=== PATIENT | female | born 1965 | race Caucasian/White ===

== ENCOUNTER 2023-10-07 21:54 | Observation (INO) | payer OTHER, SELFPAY ==
[2023-10-07 16:25] VITALS: BP 160/98
[2023-10-07 16:49] LABS: % Basophils 0.8 % (0-2); % Eosinophils 1.3 % (0-6); % Immature Granulocytes 0.3 % (0-0.5); % Lymphocytes 21.2 % (20.5-51.1); % Monocytes 6.3 % (1.7-9.3); % Neutrophils 70.1 % (42.2-75.2); Absolute Basophils 0.1 10^3/uL (0-0.2); Absolute Eosinophils 0.1 10^3/uL (0-0.7); Absolute Lymphocytes 1.7 10^3/uL (1.2-3.4); Absolute Monocytes 0.5 10^3/uL (0.1-0.6); Absolute Neutrophils 5.6 10^3/uL (1.4-6.5); Hematocrit 39.6 % (37.0-47.0); Hemoglobin 13.6 g/dL (12.0-16.0); Mean Corp Hgb Conc. 34.3 g/dL (33.0-37.0); Mean Corpuscular Hgb 30.6 pg (27.0-31.0); Mean Platelet Volume 9.8 fL (7.4-10.4); Nucleated Red Blood Cells % 0 %; Platelet Count 223 10^3/uL (130-400); Red Blood Cell Count 4.45 10^6/uL (4.20-5.40); Red Cell Dist. Width 11.7 % (11.5-14.5)
[2023-10-07 17:02] LABS: ALT (SGPT) 12 U/L (0-35); AST (SGOT) 23 U/L (14-36); Albumin 4.2 g/dl (3.5-5.0); Alkaline Phosphatase 80 U/L (38-126); Blood Urea Nitrogen 17 mg/dl (7-17); Calcium 9.2 mg/dl (8.4-10.2); Carbon Dioxide 29 mmol/L (22-30); Chloride 103 mmol/L (98-107); Glucose 99 mg/dl (70-99); Sodium 135 mmol/L (135-145); Total Bilirubin 0.8 mg/dl (0.2-1.3); Total Protein 6.8 g/dl (6.3-8.2); eGFR > 60.00
[2023-10-07 17:15] LABS: Troponin I < 0.012 ng/ml
--- NOTE | 2023-10-07 19:26 | ED.GENMED ---
History of Present Illness
General
Chief Complaint: Chest Pain
Source: patient and spouse
Exam Limitations: none
Time Seen by Provider: 10/07/23 19:21
Nursing documentation reviewed up to this point in time: agreed with
Travel History
Have you had any contact with someone who has COVID-19?: No
Do you have any symptoms of coronavirus? Fever > 100 degrees, chills, cough, shortness of breath, sore throat, loss of taste or smell, muscle aches, or headache?: No
History of Present Illness
History of Present Illness:
57-year-old female presents the emergency department complaining of chest pressure for the past 2 to 3 weeks. No worsening with exertion. She saw her primary care physician was diagnosed with a new murmur, and sent to the emergency department for
further evaluation. She is still experiencing chest pressure.
Past History
Past History
ED Past Medical History: Other (Crohn's disease)
ED Past Surgical History: Bowel resection
Social History
Tobacco: Non-smoker
Alcohol: Occasional
Drug: None
Personal:
Living: with family
Employment: Employed
Review of Systems
Review of Systems
Allergies reviewed?: Yes
All Other Systems: Not applicable
Constitutional: Reports no symptoms
EENT: Reports no symptoms
Respiratory: Reports no symptoms
Cardiac: Reports chest pain
ABD/GI: Reports no symptoms
: Reports no symptoms
Musculoskeletal: Reports no symptoms
Skin: Reports no symptoms
Neurological: Reports no symptoms
Endocrine: Reports no symptoms
Hematologic/Lymphatic: Reports no symptoms
Psychiatric: Reports no symptoms
Phy Exam
Physical Exam
Physical Exam:
Physical Exam
General: no apparent distress, not acutely ill
Neck: supple. no meningeal signs. normal posterior pharynx
Heart: s1/s2 regular rate and rhythm, diastolic murmur iv/vi. equal radial
pulses.
HEENT: Pupils equal round reactive to light, EOMI
Lungs: no acute respiratory distress. clear bilaterally
Abdomen: normal bowel sounds. not tender. no CVAT
Neuro: alert and oriented. no focal neurological deficits cranial nerves II through XII intact
Skin: no rash
Psychiatric: well kept. interactive and cooperative
Extremities: no edema. no calf tenderness. negative homans. good distal pulses
Scores
Heart Score for Chest Pain Patients
STEMI patient?: No
History: Slightly or Non-Suspicious
ECG: Normal
Age: >45 - <65 years
Risk Factors: No Risk Factors
Troponin: </= Normal Limit
Heart Score for Chest Pain Patients: 1
Heart Score Risk: 2.5% MACE over next 6 weeks
Course
Orders/Labs/Results
Orders:
Orders
10/07/23 Dinner
Cholesterol Lowering
Cholesterol Lowering: Sodium, 2 Gram
10/07/23 16:28
Electrocardiogram (*1) Urgent
Reason for Study: Chest Pain
EKG- Treatment ONCE
10/07/23 16:38
Complete Blood Count/With Diff Urgent
Comprehensive Metabolic Panel Urgent
NT-proBNP Urgent
Comment: ADD ON
Troponin I Urgent
10/07/23 19:46
CR Chest - 2 Views Urgent
Comment:
Reason For Exam: chest pressure
10/07/23 19:52
Add On- LAB Urgent
Tests Added?: pro bnp
10/07/23 20:21
Troponin I Urgent
10/07/23 21:38
Admit/Transfer Patient As Directed
Co-Sign Provider:
Level of Care: Observation services
Assign to:: Telemetry
Physician / Group: abigail longo
Diagnosis: cp with new cardiac murmur
Reason for Telemetry: Arrhythmia
Date to Stop Telemetry: 10/10/23
Time to Stop Telemetry: 11:00
Reason for Hospitalization: cp with new cardiac murmur
Code Status As Directed
Resuscitation Status: Full Code
10/07/23 22:42
Troponin I Q6H
10/07/23 22:42
Activity As Directed
Activity Level: As Tolerated
Pneumatic Compression Sleeves As Directed
Type: Knee high
Vital Signs As Directed
Frequency: Per unit guidelines
Pt Eval And Treat Routine
Activity Level: As Tolerated
DX Deep Vein Thrombosis Video Routine
10/08/23 04:42
Troponin I Q6H
10/08/23 06:00
Echo 2D MMode Color/Doppler IN AM
Reason for Study: sob
Comment: new cardiac murmur
Cardiovascular Evaluation IN AM
10/10/23 11:00
DC Protocol for Telemetry ONCE
10/07/23 16:38
10/07/23 16:38
Vital Signs
Initial and Last Documented VS:
Initial Vital Signs
Temp Pulse Resp BP Pulse Ox
98.2 F 67 16 160/98 98
10/07/23 16:25 10/07/23 16:25 10/07/23 16:25 10/07/23 16:25 10/07/23 16:25
Last Documented Vital Signs
Temp Pulse Resp BP Pulse Ox
98.2 F 64 11 131/95 96
10/07/23 16:25 10/07/23 22:30 10/07/23 22:30 10/07/23 22:00 10/07/23 21:02
MDM/Problems Addressed
Differential Diagnosis Includes:
CHF, aortic insufficiency, ACS
MDM/Problems Addressed:
57-year-old female with new diastolic murmur, concerning for aortic insufficiency, chest pressure. Dyspnea. Admit to hospitalist.
Chronic conditions affecting care: Other ( Crohn's disease)
*Radiology
Radiology exam reviewed: radiology read reviewed (Chest x-ray no acute findings)
*Pulse Oximetry
Patient hypoxic: no
*EKG
Interpreted by ED Provider?: Yes
EKG Intrepretation Date: 10/07/23
EKG Intrepretation Time: 16:32
Interpretation: abnormal
Comparison EKG: no changes
Heart Rate: 69
Rate: normal
Rhythm: sinus and PVC's
[place]: normal axis
Interval: normal interval
QRS Pattern: normal QRS
Ischemia: no ischemia
*Wire Stitcher Interpretation
Rate: normal
Interpretation: normal
Heart Rate: 66
Rhythm: sinus
*Critical Care Note
Total Time (30-74mins, 75-104mins- exclusive of procedures): Not Applicable
Patient Management
Social determinants of health affecting care: Living situation and Strong social support
Discussion with other providers: Hospitalist and Cyber Forensic Specialist (Dr. Lund, scrap iron loader)
Escalation/DeEscalation of care consider admission/obs:
Admit indicated
ED Attending Note
-
Portions of this chart may have been created with voice recognition software.� Occasional wrong word or��sound alike� substitutions may have occurred due to the inherent limitations of voice recognition software.
Discharge Plan
Departure
Patient Disposition: Admit
Date of Disposition: 10/07/23
Time of Disposition: 21:34
Admit to: Telemetry
Presentation/result/management discussed w/ accepting MD/DO: Hospitalist
Patient with high blood pressure during this ER visit?: Yes
Condition: Good
Discharge Problem:
Chest pressure, Newly recognized heart murmur
Interventions
Interventions:
*Risk Screen - Suicide Last Done: 10/07/23 20:23
*Neglect/Abuse Screening Last Done: 10/07/23 20:23
ED- Fall Risk Assessment Last Done: 10/07/23 19:44
*ED COVID-19 Vaccine History Last Done: 10/07/23 16:25
ED- Cardiac Assessment Last Done: 10/07/23 19:44
[2023-10-07 20:22] VITALS: BMI 17.6
[2023-10-07 20:33] LABS: NT-proBNP 699 pg/ml
[2023-10-07 20:52] LABS: Troponin I < 0.012 ng/ml
[2023-10-07 21:00] VITALS: BP 139/75
--- NOTE | 2023-10-07 21:53 | HPS.HSE ---
Addendum entered and electronically signed by Breann Pressley MD 10/12/23 15:15:
Patient was not taking any medication
Original Note:
Family Physician
-
Family Physician: Miguel White
Chief Complaint
-
Pressure in the center of the chest
History of Present Illness
57-year-old female with no known any major medical history other than GERD in the past and took Protonix for short. October 2022 and been discontinued, presented to the hospital per recommendation of primary care physician for evaluation of pressure
in the center of the chest with new diastolic murmur.
Admitted the last 2 to 3 weeks for symptoms intermittent and is a pressure sensation centrally located worse sometimes with walking around to even laying on her back specially in the night, eases up some time when he sits forward or sits down,
denies any radiation to his shoulders or jaw, no shortness of breath or fever or chill, admit occasional coughing especially at night which is dry.
Denies any sick contacts or recent travel, no weight change or change in stool or urine color, no bleeding event, no nausea or vomiting or any hematemesis.
Denies taking any NSAIDs or spicy or sour food. No smoking alcohol use.
Medical History
Past Medical History
Past Medical History: Reports Other
Additional Past Medical History:
Past medical history Reviewed:
History of the chronic disease
History of GERD in the past
Social history: Lives with her son and the , no smoking alcohol use.
Family history: Reviewed and noncontributory
Past Surgical History: Reports Other
Social History
Unable to obtain full social history at this time due to: Other
Family History
Family History: Other
Allergies / Home Medications
Allergies reflects when Allergies were last updated in [facility].
Home Medications with original date entered in [facility]
Allergy/Medication List:
Vital Signs
Temp Pulse Resp BP Pulse Ox
98.2 F 62 14 139/75 96
10/07/23 16:25 10/07/23 21:00 10/07/23 21:00 10/07/23 21:00 10/07/23 21:02
Review of Systems
-
A 12 point ROS was completed and negative except as noted: Yes
Physical Exam
Vital Signs
Vital Signs
Temp Pulse Resp BP Pulse Ox
98.2 F 62 14 139/75 96
10/07/23 16:25 10/07/23 21:00 10/07/23 21:00 10/07/23 21:00 10/07/23 21:02
Physical exam:
General: Awake, alert and oriented x3, not in distress and holds appropriate conversation.
HEENT: No active discharge, ecchymosis or bruising, moist lips, tongue and mucous membrane.
Eyes: No discharge or red conjunctiva, no nystagmus, pupils are reactive and equal
Neck:Supple, no JVD no bruit no goiter.
Respiratory: Normal AP contour and diameter, normal chest wall movement, normal respiratory effort, no respiratory distress,
Lungs: Good air entry bilaterally, no wheezing or rhonchi, no rales or crackles
Heart: S1, S2 regular, normal rate, diastolic murmur mostly in the left lower border, no radiation appreciated.
Gastrointestinal: Positive bowel sounds, soft, nontender, no guarding or rigidity or organomegaly
Musculoskeletal: , no chest wall abnormality or tenderness. All joints and extremities have good range of motion, no muscle tenderness or any joint swelling or tenderness.
Extremities: No pitting edema, good peripheral pulses, good range of motion
Skin: Warm and dry, no ulceration, normal color.
Neurological: Awake, alert and oriented x3, speech clear and comprehensive, good muscle tone, normal sensory and motor function
Psychiatric: Normal mood, normal thought and judgment, normal affect,
Physical Exam
General: Other
Laboratory Results
-
10/07/23 16:38
03/04/24 16:38
Laboratory Results
Total Bilirubin 0.8 mg/dl (0.2-1.3) 10/07/23 16:38
AST 23 U/L (14-36) 10/07/23 16:38
ALT 12 U/L (0-35) 10/07/23 16:38
Alkaline Phosphatase 80 U/L (38-126) 10/07/23 16:38
Troponin I < 0.012 ng/ml 10/07/23 20:21
EKG showed normal sinus rhythm rate around 69, with PVCs, MO 154, QTc 456, otherwise nonspecific T wave abnormality.
Chest x-ray:No acute cardiopulmonary process.
Data Reviewed
-
Diagnostic Radiology: Image Personally Visualized and interpreted and Discussed with Patient
Medical Tests (Nuc Med, Echo, EKG etc): Image Personally Visualized and interpreted and Discussed with Patient
Lab Data: Labs Reviewed by me and Discussed with Patient
Old Records: Reviewed
Impression/Plan
-
IMPRESSION:
57-year-old female with no known major medical history, sent by primary care physician for the pressure and no diastolic murmur
Chest pressure: Concerning for coronary artery disease, mild GERD or gastritis need to be considered specially her symptoms worse when she lays down. Doubt a pulm embolism her heart rate and oxygenation are normal.
New diastolic murmur in the left lower quadrant.
PLAN:
Cardiac monitoring
Cardiology been contacted and recommended echo
Was a low-dose aspirin
N.p.o. after midnight in case cardiology planning any intervention tomorrow
GI cocktail as needed for the recurrence of the symptoms as she currently symptomatic to see if that will help out her symptoms.
If cardiac workup is negative then she may benefit from evaluation by GI for going back on PPI.
All discussed with the patient
CODE STATUS full code
DVT prophylaxis: SCDs
[2023-10-07 22:00] VITALS: BP 131/95
[2023-10-07] MEDS: MAALOX 50 PO (22:52)
[2023-10-07 23:09] VITALS: BP 132/77
[2023-10-07 23:30] LABS: Troponin I < 0.012 ng/ml
[2023-10-08] VITALS (13 sets, daily range): BP systolic 109–143; BP diastolic 51–84
[2023-10-08 06:37] LABS: Troponin I < 0.012 ng/ml
[2023-10-08 06:42] LABS: HDL Cholesterol 66 mg/dl; LDL Cholesterol, Calculated 70 mg/dl; Total Cholesterol 148 mg/dl (50-199); Triglyceride 63 mg/dl (10-149); Very Low Density Lipoprotein 12 mg/dl (0-30)
--- NOTE | 2023-10-08 08:25 | CON.CAR ---
Addendum entered and electronically signed by Darrel Lund MD 10/08/23 09:30:
correction to exam. RRR with 2/6 systolic murmur greatest and apex and heard into axilla.
Original Note:
Consultation
Consultation Request
Date/Time Consultation Requested: 10/08/2023 8:00
Date/Time Consultation Performed: 10/08/2023 8:00
Requesting Provider: Hospitalist
Performing Provider: Dr. Lund
Reason for Consultation: Chest discomfort. Murmur.
Medical History
-
History of Present Illness:
57-year-old woman with prior history of GERD who presents with chest discomfort. Symptoms over the last 2 weeks. Patient seen by PCP noted to have new murmur. Sent to ER.Patient states that she has had some chest discomfort intermittently for the
last 2 to 3 weeks. Mild chest pressure that can last 2 to 3 hours no clear precipitating factors. Nothing particular makes symptoms better or worse. She has been getting episodes at least 4 to 5 days a week with last episode yesterday. In
addition she is has some exertional shortness of breath. Also sometimes feels short of breath when she lays down at night and tends to prop her self up with pillows. She also tends to feel like her heart is beating faster when she lays down.
Shortness of breath is not enough to make her get out of bed. No lower extremity edema. Denies having prior cardiac history. She had a URI about 4 weeks ago with low-grade temperature but felt she recovered fully since that episode. No recurrent
fevers or chills.
Even prior to 4 weeks ago she felt that sometimes she would get a little short of breath doing activities may be getting a little more tired than others. No acute change. She did not think much of this breathing issue. No history of pulmonary
issues no history of smoking.
No prior history of cardiac disease. No prior history of murmur and no prior cardiac imaging.
Troponins negative x 3. Chest x-ray with no acute abnormality. proBNP greater than 600. LDL 70
Echocardiogram 10/08/2023 normal left ventricular function. Estimated ejection fraction 60 to 65%. Bileaflet prolapse with severe mitral regurgitation. No prior echo for comparison.
Past medical history
GERD
Social history. Non-smoker
Family history negative for premature CAD .father had cardiac issues that she states were caused by accident he had in his 70s
Past Medical History
Past Medical History: Other (GERD)
Social History
Tobacco: Non-Smoker
Family History
Family History: Other (Negative for premature CAD)
Allergies / Home Medications
Allergy/AdvReac Type Severity Reaction Status Date / Time
No Known Allergies Allergy Verified 10/07/23 16:27
Medication Instructions Recorded Confirmed Type
No Meds [No Current Medications] 10/07/23 10/07/23 History
Review of Systems
-
All other systems: Negative unless noted
Physical Exam
Vital Signs
Temp Pulse Resp BP Pulse Ox
98.5 F 63 16 143/69 97
10/07/23 23:09 10/08/23 08:06 10/08/23 08:06 10/08/23 08:06 10/08/23 08:06
Lab Results
10/07/23 16:38
10/07/23 16:38
Troponin I < 0.012 ng/ml 10/08/23 05:56
Kfb-N-Sbosgfhkclf Pept 699 pg/ml 10/07/23 16:38
Physical Exam
General: Well Developed and Well Nourished
HEENT: Anicteric
Respiratory: Clear
GI: Soft and Non Distended
Musculoskeletal: No Clubbing
Neuro: Awake and Alert
Hematologic/Lymphatic: No Lymphadenopathy
Impression / Plan
-
Severe mitral regurgitation. Bileaflet prolapse. severe mitral regurgitation. New diagnosis. Preserved left ventricular function. Mildly dilated left ventricle with end-diastolic dimension 5.5 cm It seems as if the patient's had some reduction
in endurance that she has noticed over the course of months or even over the past year but now sometimes has symptoms that are suggestive orthopnea.. Echo shows preserved left ventricular function with mild dilation of LV and severe MR.
Presentation raises concern for symptomatic severe MR.
-Additional assessment right and left heart catheterization.
-Eventual mitral valve repair. Timing to be determined
.
Chest discomfort - Intermittent chest pressure lasting 1 to 3 hours. Recurrent episodes over the last 2 to 3 weeks. Exact etiology unclear. Possibility of underlying coronary disease a consideration. Also possible patient could have some chest
symptoms related to MR and higher filling pressures although echo did not suggest increased PA pressure.
-Considering recurrent symptoms of chest pressure with associated shortness of breath as well as severe MR would recommend right and left heart catheterization. Reviewed with patient who is in agreement
.
GERD - Prior history with symptoms different than what she is presenting with now. She had been on an H2 dalton in the past. Would resume H2 dalton or PPI
.
Data Reviewed
-
EKG: Tracing Personally Visualized and interpreted and Report Reviewed by me
Radiology: Report Reviewed by me
Medical Tests (Nuc Med, Echo etc): Image Personally Visualized and interpreted and Report Reviewed by me
Labs: Labs Reviewed by me
[2023-10-08] MEDS: LOW STRENGTH ASPIRIN 324 MG PO (09:12)
--- NOTE | 2023-10-08 11:06 | ITS.CL.CATH ---
Preventive Medicine Specialist - Catheterization
Cardiac Catheterization
Procedure Report:
CARDIAC CATHETERIZATION REPORT
Date of Procedure: 10/08/2023
Referring: Darrel Lund MD
Indication: Shortness of breath with transthoracic echo showing bileaflet prolapse with severe mitral regurgitation
HEMODYNAMIC DATA (hemodynamics recorded at a weight of 115 pounds and after patient given 250 cc normal saline bolus)
AO: 93/54
LV: 93/11
PCWP: 11
PA: 26/8
RV: 26/7
RA: 6
Oximetry: Ao 98%, PA 80%, cardiac output 4.7, cardiac index 2.9
LEFT VENTRICULOGRAPHY: Normal left ventricular wall motion with EF 60%. There is 2+ mitral regurgitation with impressive posterior mitral leaflet prolapse
CORONARY ANGIOGRAPHY
Dominance: Right
Left Main: Normal
LAD: Normal
Circumflex: Normal
RCA: Normal dominant vessel
Closure Device: None-of note, we were not able to advance a soft wire through the radial artery more than several centimeters and abandon the radial artery approach. The procedure was performed using 5 [place] RFA and 6 [place] RFV sheaths and
hemostasis was achieved with manual compression.
Radiation dose (mGy): 43
DAP (cm2.Gy): 3.9
Fluoroscopy time: 2.1 minutes
CONCLUSIONS:
1. Normal filling pressures with no pulmonary hypertension
2. Normal left ventricular function with EF 60%
3. Moderate mitral regurgitation by angiography
4. Normal coronary arteries
RECOMMENDATIONS: Elective JONATHAN to further evaluate bileaflet mitral valve prolapse and the severity of mitral regurgitation
Copy to: Darrel Lund MD, Miguel White MD
Nish Carson MD, [facility], [facility]
[2023-10-08] MEDS: NSS 1000 IV (11:34)
--- NOTE | 2023-10-08 14:54 | W.PN.HOSP.TC ---
Today's Communication/Plan
-
post [facility] today
await further cardio input
Assessment / Plan
Assessment / Plan
1. Chest pain
MVP with Sev MR
-Patient with diastolic murmur with click on exam, was sent in for further evaluation by PCP
-EKG did not show any ST/T wave changes
-Serial troponin checks negative
-Echocardiogram showing preserved EF of 60 to 65%, bileaflet mitral valve prolapse and severe MR
-Patient underwent left heart catheterization in morning today, with normal coronary vasculature
-Patient planned to get elective JONATHAN for furthe eval
DVT PPX - scd
Full code
Anticipated Discharge: Within 24 hours
Subjective/Interval History
-
Date of Service: October 08, 2023
No chest pain in the night
Denies shortness of breath/palpitation
Objective Data
-
Vital Signs:
Vital Signs
Temp Pulse Resp BP Pulse Ox
98.5 F 59 14 122/62 98
10/07/23 23:09 10/08/23 13:15 10/08/23 13:15 10/08/23 13:15 10/08/23 13:50
Review of Systems
-
Respiratory: Reports No Symptoms
Cardiac: Reports No Symptoms
Abdomen/GI: Reports No Symptoms
Physical Exam
-
General: No Apparent Distress and Comfortable
HEENT: Negative Oxygen
Respiratory: Clear to Auscultation
Cardiac: Regular Rhythm, S1/S2 and Murmur (Diastolic murmur with click); Negative Rub
GI: Soft, Nontender, Nondistended and Normal Bowel Sounds
Musculoskeletal: No Edema
Neuro: Awake, Alert, Oriented, No Motor Deficits and Nonfocal/Grossly Intact
Psych: Calm
--- NOTE | 2023-10-08 15:14 | PTCARENOTE ---
Patient admitted post cardiac cath which was done to evaluate new murmur and chest pain.Patient denies any pain on admission.The right groin site is clean and dry with no drainage.Vital signs are stable.The patient is in her bed with the call frost
in reach.Her is at the bedside.
[2023-10-09 03:50] VITALS: BP 99/65
[2023-10-09 05:08] LABS: Hematocrit 36.4 % (37.0-47.0); Hemoglobin 12.5 g/dL (12.0-16.0); Mean Corp Hgb Conc. 34.3 g/dL (33.0-37.0); Mean Corpuscular Hgb 30.2 pg (27.0-31.0); Mean Corpuscular Volume 87.9 fL (81.0-99.0); Mean Platelet Volume 9.9 fL (7.4-10.4); Platelet Count 175 10^3/uL (130-400); Red Blood Cell Count 4.14 10^6/uL (4.20-5.40); Red Cell Dist. Width 11.5 % (11.5-14.5); White Blood Cell Count 7.7 10^3/uL (4.8-10.8)
[2023-10-09 05:49] LABS: Blood Urea Nitrogen 16 mg/dl (7-17); Calcium 8.5 mg/dl (8.4-10.2); Carbon Dioxide 25 mmol/L (22-30); Chloride 105 mmol/L (98-107); Estimated Creatinine Clearance 86 ml/min; Glucose 81 mg/dl (70-99); HDL Cholesterol 61 mg/dl; LDL Cholesterol, Calculated 61 mg/dl; Potassium 4.2 mmol/L (3.5-5.1); Sodium 134 mmol/L (135-145); Total Cholesterol 134 mg/dl (50-199); Triglyceride 64 mg/dl (10-149); Very Low Density Lipoprotein 12 mg/dl (0-30); eGFR > 60.00
[2023-10-09 07:35] VITALS: BP 121/68
--- NOTE | 2023-10-09 09:40 | W.PN.HOSP.TC ---
Today's Communication/Plan
-
await cardio eval today
likely discharge home after
Assessment / Plan
Assessment / Plan
1. Chest pain
MVP with Sev MR
-Patient with diastolic murmur with click on exam, was sent in for further evaluation by PCP
-EKG did not show any ST/T wave changes
-Serial troponin checks negative
-Echocardiogram showing preserved EF of 60 to 65%, bileaflet mitral valve prolapse and severe MR
-Patient underwent left heart catheterization in morning today, with normal coronary vasculature
-Patient planned to get elective JONATHAN for further eval
DVT PPX - scd
Full code
Anticipated Discharge: Today
Subjective/Interval History
-
Date of Service: October 09, 2023
no complains overnight
Objective Data
-
Labs:
Laboratory Results
10/09/23
04:18
WBC 7.7
Hgb 12.5
Hct 36.4 L
Plt Count 175 D
Sodium 134 L
Potassium 4.2
Chloride 105
Carbon Dioxide 25
BUN 16
Creatinine 0.6
Glucose 81
Calcium 8.5
Vital Signs:
Vital Signs
Temp Pulse Resp BP Pulse Ox
98.1 F 70 16 121/68 98
10/09/23 07:35 10/09/23 07:35 10/09/23 07:35 10/09/23 07:35 10/09/23 07:35
Review of Systems
-
Respiratory: Reports No Symptoms
Cardiac: Reports No Symptoms
Abdomen/GI: Reports No Symptoms
Physical Exam
-
General: Comfortable
HEENT: Negative Oxygen
Musculoskeletal: Other (clean right groin dressing )
Neuro: Awake, Alert, Oriented and No Motor Deficits
--- NOTE | 2023-10-09 10:42 | W.PN.CD ---
Today's Communication / Plan
-
no cardiac contraindication to discharge. Follow up in 'Discharge' section. No meds
Impression / Plan
-
Severe mitral regurgitation. Bileaflet prolapse. severe mitral regurgitation. New diagnosis. Preserved left ventricular function. Mildly dilated left ventricle with end-diastolic dimension 5.5 cm It seems as if the patient's had some reduction
in endurance that she has noticed over the course of months or even over the past year but now sometimes has symptoms that are suggestive orthopnea.. Echo shows preserved left ventricular function with mild dilation of LV and severe MR.
Presentation raises concern for symptomatic severe MR.
- Additional assessment right and left heart catheterization done
- JONATHAN as OP
- Eventual mitral valve repair. Timing to be determined
Chest discomfort - no CAD
GERD - Prior history with symptoms different than what she is presenting with now. She had been on an H2 dalton in the past. Would resume H2 dalton or PPI
Dispo - no cardiac contraindication to discharge. Follow up in 'Discharge' section. No meds
No CP, palps, or dyspnea
Physical Exam
Vital Signs/Labs
Vital Signs
Temp Pulse Resp BP Pulse Ox
36.7 C 70 16 121/68 98
10/09/23 07:35 10/09/23 07:35 10/09/23 07:35 10/09/23 07:35 10/09/23 07:35
10/08/23 10/09/23 10/10/23
06:59 06:59 06:59
Actual Weight 115 lb 11.883 oz
10/09/23 04:18
10/09/23 04:18
Triglycerides 64 mg/dl (10-149) 10/09/23 04:18
LDL Cholesterol, Calc 61 mg/dl 10/09/23 04:18
VLDL Cholesterol, Calc 12 mg/dl (0-30) 10/09/23 04:18
HDL Cholesterol 61 mg/dl 10/09/23 04:18
10/07/23
16:38
Kiu-Z-Tzwoxtexxet Pept 699
LAB Results
10/07/23 10/07/23 10/07/23
16:38 20:21 22:55
Troponin I < 0.012 < 0.012 < 0.012
10/08/23
05:56
Troponin I < 0.012
Physical Exam
Constitutional: No acute distress
EENT: Anicteric and Moist mucous membranes
Cardiovascular: Rhythm & rate is regular, Diastolic murmur absent and Systolic murmur present
Respiratory: Respiratory effort normal, Lungs clear to auscul. and Rhonchi Absent
GI: Soft and Distention absent
Neuro/Psych: Alert
Data Reviewed
-
Date of Service: October 09, 2023
EKG: Other (Normal)
[2023-10-09 11:00] VITALS: BP 103/63
--- NOTE | 2023-10-09 12:36 | CM ---
Reviewed medical records. Patient was discharged prior to Initial assessment being completed. Home with no needs. Patient arranged for transport home.
--- NOTE | 2023-10-10 07:36 | W.DCSUMMARY ---
Discharge Summary
Discharge Data
Date of Admission: 10/07/23
Date of Discharge: 10/09/23
-
Pending Results: No
Hospital Course
Discharging Physician : Dr Kahlil Skaggs
Disposition : To home
Primary care physician : Dr. Miguel Mitchell
Principal Discharge diagnosis :
Severe mitral regurgitation
Bileaflet mitral valve prolapse
Chest discomfort
Chronic Discharge diagnosis :
Gastroesophageal reflux disease
Hospital Course :
Patient is 57-year-old female with no significant past medical history came to ER with new onset of episodic chest discomfort with activity. No associated shortness of breath/nausea/diaphoresis. Patient did not have any previous cardiac history.
Patient was evaluated by primary care physician and was noted to having diastolic murmur. Patient was sent to ER for further evaluation. Lab evaluation was normal including cardiac enzyme check. EKG did not show any changes suggestive of
underlying CAD. An echocardiogram was done which showed a severe mitral regurgitation resulting from bileaflet mitral valve prolapse. Cardiology discussed need of elective heart catheterization for further evaluation which showed normal filling
pressure with normal coronaries. Cardiology recommended patient to follow-up in office postdischarge for continual evaluation for possible need of eventual mitral valve repair.
Important imaging findings :
None
Procedure findings :
None
Discharge Plan
-
Patient Disposition: Home (Routine Discharge)
Discharge Diagnosis/Procedures: Cardiac catheterization
Condition: Fair
Diet: Regular
Activity: As tolerated
Driving Restrictions: As prior to admission
Bathing Restrictions: OK to Shower
Stand Alone Forms: DC Instructions- Cath/EP Lab
Referrals:
Lolly Ambrocio CRNP [Specified Professional Personl] - 10/28/23 10:40 am (Cardiology followup appointment)
Miguel White MD [Family Provider] - in one week
Prescriptions:
No Action
No Current Medications
0
Discharge Orders:
Discharge Patient (As Directed); Ordered 10/09/23
Ordered By: Kahlil Skaggs
Discharge Date and Time
Discharge Date/Time: 10/09/23 12:12
== END 2023-10-09 12:12 | disposition home or self-care (01) ==
LOC: 2 SOUTH 21:54
PROVIDERS: Clinical Nurse Specialist Family Health; Emergency Medicine; Nurse Practitioner; ADMITTING PHYSICIAN Internal Medicine; ATTENDING PHYSICIAN Hospitalist; CONSULT PHYSICIAN Internal Medicine Cardiovascular Disease; EMERGENCY PHYSICIAN Emergency Medicine; FAMILY PHYSICIAN Internal Medicine
DX: R07.89 Other chest pain (principal); K21.9 Gastro-esophageal reflux disease without esophagitis; I34.0 Nonrheumatic mitral (valve) insufficiency; I34.1 Nonrheumatic mitral (valve) prolapse
CPT/HCPCS: 71046; 80048; 80053; 80061; 83880; 84484; 85025; 85027; 93005; 93306; 93460; 99285; C1894; G0378; Q9967

== ENCOUNTER → 2023-10-16 07:34 | Day surgery (SDC) | payer OTHER, SELFPAY ==
[2023-10-16 08:14] VITALS: BMI 17.7
== END ==
LOC: CATH 07:34
PROVIDERS: ATTENDING PHYSICIAN Internal Medicine Cardiovascular Disease; FAMILY PHYSICIAN Internal Medicine
DX: I08.1 Rheumatic disorders of both mitral and tricuspid valves (principal); K21.9 Gastro-esophageal reflux disease without esophagitis
CPT/HCPCS: 93312; 93320; 93325

== ENCOUNTER → 2023-11-05 11:13 | Outpatient (REF) | payer OTHER, SELFPAY | LOC: HWRAD 11:13 | PROVIDERS: ATTENDING PHYSICIAN Thoracic Surgery (Cardiothoracic Vascular Surgery); FAMILY PHYSICIAN Internal Medicine | DX: I34.0 Nonrheumatic mitral (valve) insufficiency (principal); Z01.818 Encounter for other preprocedural examination | CPT/HCPCS: 71275; 74174; Q9967 ==

== ENCOUNTER → 2023-11-14 07:55 | Outpatient (REF) | payer OTHER, SELFPAY | LOC: RSP 07:55 | PROVIDERS: ATTENDING PHYSICIAN Internal Medicine Cardiovascular Disease; FAMILY PHYSICIAN Internal Medicine | DX: R06.02 Shortness of breath (principal) | CPT/HCPCS: 94727; 94729; 88738; 94010 ==

== ENCOUNTER → 2023-11-22 10:43 | Outpatient (REF) | payer OTHER, SELFPAY | LOC: RAD 10:43 | PROVIDERS: ATTENDING PHYSICIAN Thoracic Surgery (Cardiothoracic Vascular Surgery); FAMILY PHYSICIAN Internal Medicine | DX: I34.0 Nonrheumatic mitral (valve) insufficiency (principal); Z01.818 Encounter for other preprocedural examination | CPT/HCPCS: 93880 ==

== ENCOUNTER 2024-01-06 05:16 | Inpatient (IN) | payer OTHER, SELFPAY ==
[2023-12-23 08:26] VITALS: BMI 18.0
[2023-12-23 09:06] LABS: % Basophils 0.8 % (0-2); % Eosinophils 1.5 % (0-6); % Immature Granulocytes 0.2 % (0-0.5); % Lymphocytes 20.7 % (20.5-51.1); % Monocytes 7.8 % (1.7-9.3); Absolute Basophils 0.1 10^3/uL (0-0.2); Absolute Eosinophils 0.1 10^3/uL (0-0.7); Absolute Lymphocytes 1.2 10^3/uL (1.2-3.4); Absolute Monocytes 0.5 10^3/uL (0.1-0.6); Absolute Neutrophils 4.1 10^3/uL (1.4-6.5); Hematocrit 37.7 % (37.0-47.0); Mean Corp Hgb Conc. 34.5 g/dL (33.0-37.0); Mean Corpuscular Hgb 30.3 pg (27.0-31.0); Mean Corpuscular Volume 87.9 fL (81.0-99.0); Nucleated Red Blood Cells % 0 %; Platelet Count 187 10^3/uL (130-400); Red Blood Cell Count 4.29 10^6/uL (4.20-5.40); Red Cell Dist. Width 11.7 % (11.5-14.5)
[2023-12-23 09:20] LABS: ALT (SGPT) 16 U/L (0-35); AST (SGOT) 31 U/L (14-36); Albumin 4.3 g/dl (3.5-5.0); Alkaline Phosphatase 64 U/L (38-126); Blood Urea Nitrogen 18 mg/dl (7-17); Calcium 9.6 mg/dl (8.4-10.2); Carbon Dioxide 28 mmol/L (22-30); Chloride 103 mmol/L (98-107); Direct Bilirubin 0.2 mg/dl (0.0-0.4); Estimated Creatinine Clearance 72 ml/min; Glucose 93 mg/dl (70-99); Potassium 3.5 mmol/L (3.5-5.1); Sodium 139 mmol/L (135-145); Total Bilirubin 1.8 mg/dl (0.2-1.3); Total Protein 6.9 g/dl (6.3-8.2); eGFR > 60.00
[2023-12-23 09:33] LABS: INR 1.11; PT 14.1 Sec (11.4-14.6)
[2023-12-23 09:34] LABS: APTT 36.2 Sec (23.4-35.0)
[2023-12-23 09:46] LABS: Urine Albumin Trace (Neg - Trace); Urine Bilirubin 1+ (Negative); Urine Character Clear (Clear); Urine Color Yellow; Urine Glucose Negative (Negative); Urine Ketone 1+ (Negative); Urine Leukocyte Trace (Negative); Urine Nitrite Positive (Negative); Urine Occult Blood 3+ (Negative); Urine Specific Gravity 1.025 (<1.030); Urine Urobilinogen Negative (Neg - 1+)
--- NOTE | 2023-12-23 09:56 | CM ---
Chart reviewed. Met with the patient in PAT. Reviewed preoperative and postoperative instructions and restrictions. Gave patient 2 soaps, along with showering instructions. Patient is agreeable to a home visit by CT Transitional Care RN.
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 Plan is for the patient to return home with CT
Transitional Room.
[2023-12-23 12:09] LABS: Urine Mucus Many
[2023-12-23 12:10] LABS: Urine Amorphous Seen
[2023-12-23 12:11] LABS: Urine Bacteria Many (Negative); Urine Red Blood Cell 0-2 /HPF (0-2); Urine White Cell 16-20 /HPF (0-5)
[2023-12-23 12:12] LABS: Urine Granular Cast 0-2 /LPF (0); Urine Squamous Cell 21-25 /LPF (Few)
[2023-12-23 12:49] LABS: Glycohemoglobin (HgbA1c) 5.3 % (4.0-5.6)
[2024-01-06] VITALS (17 sets, daily range): BP systolic 76–107; BP diastolic 36–78; PULSE 2–67; BMI 17.4
[2024-01-06] MEDS: PROTONIX 40 MG PO (06:06)
[2024-01-06] MEDS: MAGNESIUM OXIDE 500 MG PO (06:09)
[2024-01-06] MEDS: BACTROBAN 2% OINTMENT 1 APPLIC NASAL ×2 (06:09→20:30)
--- NOTE | 2024-01-06 06:09 | W.CVOR.SURPR ---
CVOR Surgeon Immed Pre Op
-
I have examined this patient prior to performance of the scheduled procedure.
The patient's condition is unchanged from the time of the dictated/written History and
Physical and the patient is able to undergo the scheduled procedure.
Complex mitral repair, denies any atrial fibrillation history
--- NOTE | 2024-01-06 06:50 | PTCARENOTE ---
Patient prepped for surgery. NPO since 2100 previous night. Showersx2. Clipped and cleansed with CHG wipes. Preop meds administered. Report given to CVOR nurse. Patient transported at approx 0635
[2024-01-06 07:12] LABS: ACT+ - POC 104 Seconds (82-134)
[2024-01-06 07:13] LABS: B.E. - POC -1.6 mmol/L; Glucose - POC 84 mg/dl (65-99); HCO3 - POC 25 mmol/L (21-29); Hematocrit - POC 34 % PCV (37-47); Hemodilution- POC Yes; Hemoglobin Calculated - POC 11.7; PCO2 - POC 50 mmHg (35-45); PO2 - POC 488 mmHg (80-100); Potassium - POC 3.5 mmol/L (3.6-5.0); Sodium - POC 142 mmol/L (135-145); pH - POC 7.31 (7.35-7.45)
[2024-01-06 07:33] LABS: Urine Albumin Negative (Neg - Trace); Urine Bilirubin Negative (Negative); Urine Character Clear (Clear); Urine Color Straw; Urine Glucose Negative (Negative); Urine Ketone Negative (Negative); Urine Leukocyte Negative (Negative); Urine Nitrite Negative (Negative); Urine Occult Blood Trace (Negative); Urine Specific Gravity 1.015 (<1.030); Urine Urobilinogen Negative (Neg - 1+)
[2024-01-06 07:45] LABS: Urine Bacteria Few (Negative); Urine Squamous Cell 0-2 /LPF (Few)
[2024-01-06 07:46] LABS: Urine Red Blood Cell 0-2 /HPF (0-2); Urine White Cell 0-2 /HPF (0-5)
--- NOTE | 2024-01-06 08:25 | W.PN.CD ---
Today's Communication / Plan
-
Routine post operative management.
Impression / Plan
-
Impression/Plan: 58 y/o female with a history of Crohn's disease and myxomatous mitral valve degeneration (Melton's valve) with symptomatic severe mitral valve regurgitation admitted for elective mitral valve repair/replacement.
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
-Anticipate routine post operative management.
-Maintain inotropes/pressors to maintain CI > 2.2, MAP > 65.
-Wean vent to extubate.
#Crohn's disease
-Chronic, stable.
Subjective/Interval History:
Currently in surgery.
DATA:
CTA, 11/05/2023:
IMPRESSION:
1. No significant valvular or coronary arterial calcification.
2. Changes of prior bowel resection.
Cardiac Catheterization, 10/08/2023:
CONCLUSIONS:
1. Normal filling pressures with no pulmonary hypertension.
2. Normal left ventricular function with EF 60%.
3. Moderate mitral regurgitation by angiography.
4. Normal coronary arteries.
Transesophageal Echocardiogram, 10/16/2023:
CONCLUSIONS
Normal biventricular size and systolic function without regional wall motion
abnormality.
Myxomatous mitral valve with bileaflet prolapse and severe mitral
regurgitation.
Mild prolapse of the tricuspid leaflets with mild regurgitation.
No prior study available for comparison.
Physical Exam
Vital Signs/Labs
Vital Signs
Pulse BP
57 134/68
01/06/24 06:27 01/06/24 06:27
01/04/24 01/05/24 01/06/24
11:59 11:59 11:59
Actual Weight 51.9 kg
12/23/23 08:40
12/23/23 08:40
PT 14.1 Sec (11.4-14.6) 12/23/23 08:40
INR 1.11 12/23/23 08:40
APTT 36.2 Sec (23.4-35.0) H 12/23/23 08:40
Physical Exam
Exam deferred as the patient is in surgery.
Data Reviewed
-
Date of Service: January 06, 2024
Medical Decision Making: Reviewed Test Results, Test Interpretation and Review of Case with other Provider
EKG: Tracing Personally Visualized and interpreted and Report Reviewed by me
Echo: Report Reviewed by me
X-Ray/CT/US/MRI/NUC/PET: Image Personally Visualized and interpreted and Report Reviewed by me
Medical Tests (PFT, Pathology etc): Report Reviewed by me
Labs: Labs Reviewed by me
[2024-01-06 09:04] LABS: ACT+ - POC > 1003 Seconds (82-134)
[2024-01-06 09:09] LABS: B.E. - POC 2.6 mmol/L; Glucose - POC 169 mg/dl (65-99); HCO3 - POC 24 mmol/L (21-29); Hematocrit - POC 22 % PCV (37-47); Hemodilution- POC Yes; Hemoglobin Calculated - POC 7.6; Ionized Calcium - POC 0.95 mmol/L (1.12-1.27); PCO2 - POC 25 mmHg (35-45); PO2 - POC 375 mmHg (80-100); Potassium - POC 4.8 mmol/L (3.6-5.0); Sodium - POC 137 mmol/L (135-145); pH - POC 7.59 (7.35-7.45)
--- NOTE | 2024-01-06 09:24 | CM ---
pt in OR today, dc to follow.
[2024-01-06 09:37] LABS: Glucose - POC 205 mg/dl (65-99); HCO3 - POC 25 mmol/L (21-29); Hematocrit - POC 24 % PCV (37-47); Hemodilution- POC Yes; Hemoglobin Calculated - POC 8.1; Ionized Calcium - POC 1.02 mmol/L (1.12-1.27); O2 Saturation %Calculated-POC 99.8 5 (92-96); PCO2 - POC 50 mmHg (35-45); PO2 - POC 268 mmHg (80-100); Potassium - POC 4.4 mmol/L (3.6-5.0); Sodium - POC 137 mmol/L (135-145); pH - POC 7.31 (7.35-7.45)
[2024-01-06 10:08] LABS: B.E. - POC -2.8 mmol/L; Glucose - POC 145 mg/dl (65-99); HCO3 - POC 22 mmol/L (21-29); Hematocrit - POC 25 % PCV (37-47); Hemodilution- POC Yes; Hemoglobin Calculated - POC 8.6; Ionized Calcium - POC 0.98 mmol/L (1.12-1.27); O2 Saturation %Calculated-POC 99.9 5 (92-96); PCO2 - POC 37 mmHg (35-45); PO2 - POC 279 mmHg (80-100); Potassium - POC 3.9 mmol/L (3.6-5.0); Sodium - POC 141 mmol/L (135-145); pH - POC 7.39 (7.35-7.45)
[2024-01-06 10:30] LABS: B.E. - POC 1.9 mmol/L; Glucose - POC 113 mg/dl (65-99); HCO3 - POC 27 mmol/L (21-29); Hematocrit - POC 24 % PCV (37-47); Hemodilution- POC Yes; Hemoglobin Calculated - POC 8.3; Ionized Calcium - POC 0.96 mmol/L (1.12-1.27); PCO2 - POC 44 mmHg (35-45); PO2 - POC 476 mmHg (80-100); Potassium - POC 3.7 mmol/L (3.6-5.0); Sodium - POC 144 mmol/L (135-145)
[2024-01-06 10:55] LABS: B.E. - POC 0.8 mmol/L; Glucose - POC 86 mg/dl (65-99); HCO3 - POC 27 mmol/L (21-29); Hematocrit - POC 24 % PCV (37-47); Hemodilution- POC Yes; Hemoglobin Calculated - POC 8.3; Ionized Calcium - POC 1.36 mmol/L (1.12-1.27); O2 Saturation %Calculated-POC 99.9 5 (92-96); PCO2 - POC 49 mmHg (35-45); PO2 - POC 301 mmHg (80-100); Potassium - POC 4.1 mmol/L (3.6-5.0); Sodium - POC 143 mmol/L (135-145); pH - POC 7.35 (7.35-7.45)
[2024-01-06 11:04] LABS: ACT+ - POC 807 Seconds (82-134)
[2024-01-06 11:23] LABS: B.E. - POC -1.5 mmol/L; Glucose - POC 88 mg/dl (65-99); HCO3 - POC 23 mmol/L (21-29); Hematocrit - POC 26 % PCV (37-47); Hemodilution- POC Yes; Ionized Calcium - POC 1.21 mmol/L (1.12-1.27); PCO2 - POC 35 mmHg (35-45); PO2 - POC 369 mmHg (80-100); Potassium - POC 3.6 mmol/L (3.6-5.0); Sodium - POC 145 mmol/L (135-145); pH - POC 7.42 (7.35-7.45)
[2024-01-06 11:29] LABS: ACT+ - POC 681 Seconds (82-134)
[2024-01-06] MEDS: ANCEF 10 IV ×2 (11:55→13:12)
[2024-01-06 11:59] LABS: ACT+ - POC 112 Seconds (82-134)
[2024-01-06 12:00] LABS: B.E. - POC -0.3 mmol/L; Glucose - POC 79 mg/dl (65-99); HCO3 - POC 26 mmol/L (21-29); Hematocrit - POC 26 % PCV (37-47); Hemodilution- POC Yes; Hemoglobin Calculated - POC 8.9; O2 Saturation %Calculated-POC 99.8 5 (92-96); PCO2 - POC 48 mmHg (35-45); PO2 - POC 268 mmHg (80-100); Potassium - POC 3.3 mmol/L (3.6-5.0); Sodium - POC 144 mmol/L (135-145); pH - POC 7.34 (7.35-7.45)
--- NOTE | 2024-01-06 12:22 | W.PN.CT.SURG ---
CT Surgery Operative Note
-
CARDIAC SURGERY OPERATIVE REPORT
Preoperative Diagnosis: Myxomatous mitral valve degeneration, Melton valve disease with severe mitral valve sufficiency, symptomatic
Postoperative Diagnosis: Same
Procedure(s) Performed:
1. Right mini thoracotomy with right common femoral artery and vein cannulation under JONATHAN guidance
2. Radical mitral valve repair (40 mm band annuloplasty, 7 pairs of neochords [place]Cole sutures with 2 to the anterior leaflet and 5 to the posterior leaflet, cleft closure between P1 and P2)
3. Placement temporary ventricular pacing wires
4. Trans esophageal echocardiography
Date of Surgery: 01/06/2024
Comorbidities:
1. Myxomatous degeneration of the mitral valve, type II pathology with bileaflet prolapse [Melton valve]
2. Severe mitral valve insufficiency, symptomatic
3. History of Crohn's disease
4. Kidney stone
5. Anxiety
Attending Surgeon: Sebas Felix MD, MS
Assistants: Rashida Kaufman PA-C (present and necessary for retraction, suctioning, exposure, suture management, wound closure, etc. under my direction)
Anesthesiology: Shaka Jacobo MD and Christophe Taylor CRNA
Scrub and Circulating RNs: Luma Mcginnis RN, Sienna Alvares RN
Shoe Patternmaker: Agnes Woods CCP
Anesthesia: GETA
EBL: per perfusion records
Products: None
CPB Time: 181 minutes
Aortic Cross Clamp Time: 143 minutes
Indication(s) for Procedures: This is a 58-year-old female who has known mitral valve insufficiency, symptomatic and met stage D symptomatology and class indication for surgical repair. Given the complexity of the valve, I did quote her a slightly
higher replacement risk due to MORENITA. She excepted those risks and so we proceeded for surgery.
Mitral Valve Description: Myxomatous degeneration of both leaflets, thickening of both anterior and posterior leaflets with elongation and bileaflet prolapse consistent with a Melton valve. There is evidence of degeneration of essentially all her
anterior leaflet and all her posterior leaflets which were elongated. The annulus was severely dilated. Her anterior leaflet measured to be approximately 3.3 cm and her annulus was well over 4.5 cm there was a large cleft between P1 and P2 and P2
and P3.
Implants:
1. 40 mm GARRETT PhysioFlex Band Annuloplasty, SN [id number]
2. Multiple CV 4/5 Goretex Neochords
3. 36mm GARRETT PhysioFlex - Wasted
Specimen:
1. none
Findings: Her left ventricular ejection fraction preoperatively was 60% with no regional wall motion abnormalities. Following surgery EF remained the same at 60% with no new regional wall motion abnormalities. RV function was normal. RV size was
normal. There was trace to mild tricuspid valve insufficiency secondary to annular dilatation. This improved to trace following surgery. Her mitral valve was initially repaired with a 36 mm band annuloplasty and multiple cords to the anterior and
posterior leaflets. A total of 4 pairs of cords were placed to the posterior leaflet with 2 to the anterior leaflet. Upon coming off cardiopulmonary bypass the first time, there was evidence of systolic anterior motion of the leaflets with mild to
moderate residual insufficiency secondary to this. There is also slight acceleration of flow across her LVOT. I was not satisfied with this repair and opted to reinstitute cardiopulmonary bypass and rearrest. The previous 36 mm band annuloplasty
along with 14 nonpledgeted 2 Ethibond sutures and core knots were removed. A new 40 mm band annuloplasty was secured to place using 12 nonpledgeted 2 Ethibond sutures with core knots from trigone to trigone. An additional CV 5 [place]-Cole suture was
placed to the posterior medial papillary muscle head to the P2 body of the leaflet further anchoring down the posterior leaflet. Dynamic inflation of the left ventricle and ink test demonstrated a posterior coaptation margin with the more
appropriate coaptation height. Coming off of cardiopulmonary bypass the second time, there is no residual mitral valve insufficiency, no notable gradient across the valve, and no systolic anterior motion of the leaflets. At this point she was in
sinus rhythm and not requiring any inotropic support and no products were given.
Description of Procedure: The patient was brought to the operating room and placed supine in the table with their right side bumped up and right arm down. Arterial and central access was performed by anesthesiology. The patient was prepped from chin
to toes in the typical sterile fashion. Trans esophageal evaluation of cardiac function and all valvular structures was conducted. Before commencing, a time out was performed by all members of the team. All were in agreement with the procedure and
laterality and I proceeded. A small right groin incision was made to expose the common femoral artery and vein. A total of 32,000 units of heparin was given. A 5-6 cm right lateral thoracotomy was performed over the 4th intercostal space verified by
visualization of the hilum, I was initially too high over the hilum and so reposition to the lower intercostal space. The common femoral artery and vein were cannulated under transesophageal guidance using open Seldinger technique. The arterial line
was verified to have an appropriate bounce and pressure correlating with testing. Once the ACT was above 400, retrograde autologous priming was done and we commenced cardiopulmonary bypass. Target core temperature was 34�C.
Carbon dioxide was used to flood the field. The course of the phrenic nerve was identified to prevent injury. The pericardium was opened and two stay sutures were placed to facilitate a ``pericardial table.�� The oblique sinus was developed followed
by the inter atrial groove. An antegrade root vent was inserted and secured with a pursestring suture. The pump flow and mean arterial pressure were lowered and an aortic cross clamp was applied to the ascending aorta. A total of 1.2L initial dose
of Antegrade cardioplegia was delivered. We had rapid electro myocardial quiescence at 250cc of cardioplegia. The ventricle was monitored for distension by echocardiogram during this time. The left atrium was incised and enlarged. A left atrial lift
retractor was placed. The mitral valve was inspected. The mitral valve was repaired as described above. The left atriotomy was closed with 3-0 prolene in a running fashion leaving a ventricular vent in place to de-air. After filling the heart, the
vent was removed and the prolene was secured with a corknot. Unipolar ventricular pacing wire was placed on the base of the right ventricle. The patient was placed into Trendelenburg position and pump flows were lowered. The clamp was slowly
removed with the root vent turned on. De-airing maneuvers were performed. We started to rewarm with a target of 36.5�C. After inspection of the mitral valve repair the initial time, I was not satisfied as there was some systolic anterior motion of
the leaflets resulting in mild to moderate residual insufficiency. Due to this I opted to reinstitute cardiopulmonary bypass and reapply the cross-clamp and to give an additional 500 cc of cardioplegia with rapid arrest at 100 cc of antegrade. The
previous band anoplasty was extracted as described above. A new band was placed and additional Cordis placed in the body of P2 leaflet anchoring down the posterior leaflet is much as possible. The left atrium was then closed again with 3-0 Prolene
in a running fashion and secured with the cor knot after de-airing. The head was then lowered and the patient was turned towards her left side. Flows were dropped on the cardiopulmonary bypass machine and the clamp was removed while sucking on the
root vent.
As the heart recovered, the mitral valve and ventricular function were assessed under transesophageal echocardiogram. The LV vent and root vents were removed. Once weaning parameters were satisfactory, cardiopulmonary bypass flow was lowered until
we were off cardiopulmonary bypass the mitral valve was inspected again. All surgical sites were inspected for hemostasis and appeared appropriate. The lines were clamped and the arterial was relocated to the venous cannula to give back volume. A
test dose of protamine was delivered and patient was monitored for any adverse reactions followed by complete protamine dosing. The femoral vessels were decannulated and repaired as indicated. The pericardium was approximated with 2-0 ethibond
sutures secured with corknots. One 19F [place] drain remained in the pleural space and looped into the pericardial space. There was an excellent palpable pulse distal to the STEAM FITTER cannulation site. Local analgesia was injected to the thoracotomy. The
rib space was approximated with #2 Vicryl suture. The incision was closed in layers in a running fashion.
All instrument, sponge, and needle counts were confirmed to be correct x 2 at the end of the operation. The patient was transferred to the cardiac intensive care unit in critical but stable condition.
I, Dr. Sebas Felix, was present, scrubbed for, and performed all critical elements of this procedure.
Sebas Felix MD, MS
Cardiothoracic Surgeon
[facility]
This dictation was created using the [employer] dictation system. Please excuse any grammatical, typographical, or 'sound alike' errors
[2024-01-06 12:54] LABS: B.E. -3.8 mmol/L; HCO3 26.3 mmol/L (21-28); Ionized Calcium 1.37 mMOL/L (1.15-1.33); O2 Saturation % 94.4 % (94-98); PO2 100 mmHg (83-108); Potassium 3.4 mMOL/L (3.5-5.1); Sodium 141 mMOL/L (136-145)
[2024-01-06 12:56] LABS: Glucose - Point of Care 68 mg/dl (70-99)
--- NOTE | 2024-01-06 12:57 | CON.INTV ---
Consultation
Consultation Request
Date/Time Consultation Requested: 01/06/2024 - 1214
Date/Time Consultation Performed: 01/06/2024 - 1255
Requesting Provider: BOLIVAR Robles
Performing Provider: Dr. Maguire
Reason for Consultation: s/p MR-repair
Medical History
-
Chief Complaint: Elective mitral valve repair
History of Present Illness:
58-year-old female with a past medical history of Crohn's disease s/p bowel resection and mitral valve regurgitation who presents with elective mitral valve repair. Patient known to cardiothoracic surgery via Dr. Felix with last office visit on
12/06/2023. Patient has known myxomatous degeneration of mitral valve with JONATHAN on 10/16/2023 showing a Melton appearing valve with bileaflet prolapse. She has palpitations in her chest and her symptoms at prior office visit in October 2023 met stage D
symptomatology and class I indication for mitral valve intervention. Risks and benefits of surgical intervention were discussed and she consented for mitral valve repair. Today she underwent right minithoracotomy with radical mitral valve repair.
There were no complications and she was transferred to the CVICU postoperatively for further care. Critical care services now consulted for additional management/recommendations.
When I saw the patient she was in bed, on BiPAP on 18/01 with a VTe of 470cc. She was sleeping but was easily arousable to voice although she was confused and still clearly sedated from her recent procedure. She has a right-sided
pleural/mediastinal chest tube x 1, she is on Levophed at 3mcg/min, and vitals are: heart rate 59, SpO2 99%, PAP: 21/20, CVP: 17, CO/CI: 3.62/2.25. She denies chest pain, headache, abdominal pain, fevers or chills.
PMHx: Myxomatous degeneration of mitral valve, Crohn's disease, kidney stones
PSHx: Bowel resection, cardiac cath (10/08/2023)
Past Medical History
Past Medical History: Other (Above as per HPI)
Past Surgical History: Other (Above as per HPI)
Social History
Tobacco: Non-smoker
Alcohol: Occasional (Social)
Drug: None
Personal:
Living: With Family
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
Family History
Family History: CAD (Father)
Allergies / Home Medications
Allergies
Allergy/AdvReac Type Severity Reaction Status Date / Time
No Known Allergies Allergy Verified 12/16/23 14:55
Home Medications
�Medication �Instructions �Recorded �Confirmed �Last Taken �Type
No Meds [No Current Medications] 10/07/23 12/16/23 Unknown History
Review of Systems
-
Unable to Obtain full review of systems at this time due to: Acuity
Vitals / Labs / Diagnostic Testing
Vital Signs
Pulse BP
57 134/68
01/06/24 06:27 01/06/24 06:27
Diagnostic Testing:
Physical Exam
-
HEENT: Normocephalic and Anicteric
Cardiovascular: S1/S2 and Peripheral Edema (Negative)
Respiratory: Wheeze (Negative), Rales (Negative), Rhonchi (Negative) and Other (On BiPAP via facemask)
GI: Soft, Non Distended and Non Tender
Neurology: Other (Awakens to voice and tactile stimulation, follows commands but very sleepy, unable to communicate due to BiPAP mask)
Skin: Warm and Dry
General: Comfortable and Chills (Negative)
Assessment
-
Assessment: 58-year-old female with a past medical history of Crohn's disease s/p bowel resection and mitral valve regurgitation who presents with elective mitral valve repair. Patient known to cardiothoracic surgery via Dr. Felix with last office
visit on 12/06/2023. Patient has known myxomatous degeneration of mitral valve with JONATHAN on 10/16/2023 showing a Melton appearing valve with bileaflet prolapse. She has palpitations in her chest and her symptoms at prior office visit in October 2023 met
stage D symptomatology and class I indication for mitral valve intervention. Risks and benefits of surgical intervention were discussed and she consented for mitral valve repair. Today she underwent right minithoracotomy with radical mitral valve
repair. There were no complications and she was transferred to the CVICU postoperatively for further care. Critical care services now consulted for additional management/recommendations.
Chronic conditions [employer]: Myxomatous degeneration of mitral valve, Crohn's disease, kidney stones
Impression:
#Severe mitral valve regurgitation s/p radical mitral valve repair� POD #0
#Acute respiratory failure with hypercapnia and hypoxia now on BiPAP 16/6 bled with 5L/min
#Anemia
#Thrombocytopenia
#Hyperglycemia
Plan:
Patient was already extubated intraoperatively to BiPAP
Trend pCO2 and pH with serial blood gas and if pH >7.3 with appropriate pCO2 (35-45) then can remove from BiPAP; she will likely need BiPAP with sleep until her mental status fully recovers s/p anesthesia
Maintain SpO2 >90-9% with supplemental oxygen and titrate down to maintain that goal
Encourage incentive spirometer use
prn nebulized bronchodilators
Pulmonary artery catheter parameters will be followed
Pressors/antihypertensive/inotropes/diuretics will be provided as needed
Replete electrolytes with K>4, Mg>2
Monitor chest tube output (right pleural/mediastinal x 1)
Monitor hemoglobin
Monitor platelet count and coags
Transfuse blood product if needed to keep Hb>7, plt>50k
CT surgery managing chest tubes
Monitor blood sugar with BG goal 140-180
Insulin SQ supplementation as needed to maintain BG goal as above
Aspiration precautions
DVT prophylaxis
Early nutrition
Early mobilization
Critical care statement: A total of 46 minutes of critical care time was provided for this patient today. This includes management of ventilator, spontaneous breathing trial, arterial blood gases, pressors, of unstable vital signs, evaluation of the
patient at bedside, reviewing the patient's pertinent medical records including radiographs, microbiology, laboratory evaluations, and discussion with primary team and critical care nursing.
Data:
CXR 01-06-2024: New left basilar probable atelectasis
[2024-01-06 12:58] LABS: Hematocrit 28.9 % (37.0-47.0); Hemoglobin 9.7 g/dL (12.0-16.0); Platelet Count 129 10^3/uL (130-400)
[2024-01-06 13:06] LABS: pH 7.12 (7.35-7.45)
[2024-01-06 13:07] LABS: INR 1.72; PCO2 81 mmHg (32-35)
[2024-01-06 13:08] LABS: APTT 37.1 Sec (23.4-35.0)
[2024-01-06] MEDS: DEXTROSE 50% SYRINGE 12.5 GRAMS IV (13:11)
[2024-01-06] MEDS: NEURONTIN PO ×2 (13:12→22:41)
[2024-01-06] MEDS: NSS 500 IV (13:12)
[2024-01-06] MEDS: TYLENOL PO ×2 (13:13→22:41)
--- NOTE | 2024-01-06 13:20 | PTCARENOTE ---
received extubated but very sedated post op. on simple face mask. ABG drawn and sent. CO2 levels in 80s. PA aware and orders placed for bi pap. patient somnolent. not responsive. resps 7-9/min. BP tenuous. on levo and receiving boluses from [facility]
bedside. albumin and LR boluses started. 95 F. christian hugger placed on patient. pulses palpable. no edema. SB on monitor HR 50s. usual lines [address] CT[address] patterson draining clear yellw urine. Small bruise/hematoma noted in center of chest turning blue and
growing. PA made aware. pooja holding pressure at bedside and abd binder applied post hold. labs drawn and sent and cxr and ekg done. will continyue to monitor.
[2024-01-06 13:25] LABS: Blood Urea Nitrogen 16 mg/dl (7-17); Estimated Creatinine Clearance 84 ml/min; Glucose 65 mg/dl (70-99); Magnesium 4.1 mg/dl (1.6-2.3)
[2024-01-06 13:29] LABS: Glucose - Point of Care 158 mg/dl (70-99)
--- NOTE | 2024-01-06 14:00 | W.PN.UPDATE ---
Update Note
Progress Note Update
IV fluids: 1200
Crystalloid:� 1100
U.O.:� 500
UF:� 4000
Blood:� None
Wires:� V Wires
Inotropes:� None
Pressors:� Levophed
Sedatives:� Precedex turned off in Or and was extubated
�
NEURO: pupils +3mm B/L
RESP: Lungs clear B/L. RP/Med (5cc on arrival) chest tubes to -20cm suction. Sanguineous drainage
CV: RRR +S1, S2, no S3, no�rub, no murmur. Dermabond to incisions. RIJ w/[place] locked @ 42cm. PA ; CVP 14;
ABD: round, soft, no BS
EXT: no edema, +2/4 DP pulses B/L, no femoral bruit, left radial A-line intact
: Cook with clear yellow urine
�
A/P: POD #0 s/p HP MVRepair with #40mm Band
JONATHAN: EF�60%
- post-op ABG showed resp acidosis; will initate BIPAP
- f/u post-op labs
- Monitor CT and urine output
- check post-op EKG
- Will start ASA once able to tolerate PO
- Wean levo for MAPs >65
- pain protocol
- will start BB tomorrow.
- OOB as tolerated
- Cards consulted
�
# acute surgical blood loss anemia-expected
- trend CBC
�
[2024-01-06 14:32] LABS: Glucose - Point of Care 151 mg/dl (70-99)
[2024-01-06 14:41] LABS: B.E. -2.5 mmol/L; HCO3 23.7 mmol/L (21-28); Ionized Calcium 1.23 mMOL/L (1.15-1.33); O2 Saturation % 99.2 % (94-98); PCO2 46 mmHg (32-35); PO2 138 mmHg (83-108); Potassium 4.2 mMOL/L (3.5-5.1); pH 7.32 (7.35-7.45)
[2024-01-06 14:43] LABS: ACT+ - POC > 1003 Seconds (82-134)
[2024-01-06 14:43] LABS: ACT+ - POC > 1003 Seconds (82-134)
[2024-01-06 14:43] LABS: ACT+ - POC > 1003 Seconds (82-134)
[2024-01-06 14:43] LABS: ACT+ - POC > 1003 Seconds (82-134)
[2024-01-06] MEDS: DILAUDID 0.25 MG IV (15:21)
[2024-01-06 15:28] LABS: Glucose - Point of Care 165 mg/dl (70-99)
[2024-01-06] MEDS: NEURONTIN 100 MG PO (16:21)
[2024-01-06 16:30] LABS: Glucose - Point of Care 116 mg/dl (70-99)
[2024-01-06 16:36] LABS: Hematocrit 27.8 % (37.0-47.0); Hemoglobin 9.9 g/dL (12.0-16.0); Platelet Count 142 10^3/uL (130-400)
[2024-01-06] MEDS: LOW STRENGTH ASPIRIN 81 MG PO (16:36)
[2024-01-06 17:30] LABS: Glucose - Point of Care 87 mg/dl (70-99)
[2024-01-06] MEDS: DILAUDID 0.5 MG IV (17:55)
[2024-01-06] MEDS: ANCEF 5 IV (17:55)
[2024-01-06 18:50] LABS: Glucose - Point of Care 84 mg/dl (70-99)
[2024-01-06 20:22] LABS: Glucose - Point of Care 98 mg/dl (70-99)
[2024-01-06] MEDS: SENOKOT-S PO (20:30)
[2024-01-06] MEDS: ZOFRAN 4 MG IV (20:38)
[2024-01-06] MEDS: SODIUM BICARBONATE 50 MEQ IV (20:54)
--- NOTE | 2024-01-06 21:00 | PTCARENOTE ---
Patient received resting in bed. Patient A+A+Ox3. No neurological deficits noted. No headache, dizziness or lightheadedness. Patient with c/o nausea. Patient then vomited 150 ml liquidity clear emesis. Zofran 4mg IV administered without
difficulty. Relief provided. Patient now dozing intermittently. No s/s of respiratory distress. No c/o SOB. O2 2L via NC. SaO2 98%. Sinus Bradycardia with occasional PVC's. 4 beat run. No c/o chest pain, pressure or discomfort. Epicardial
Temporary Pacemaker - VVI Rate 40, Output 10, Sensitivity 0.8. Chest tube intact - 10 ml red drainage - Dressing intact - No air leak, tidaling or crepitus noted. Abdomen soft, nontender. Hypoactive bowel sounds. Cook catheter - Temperature
sensing - Light tonja, yellow urine - Outputs as documented. Right [place]. Cordis/[place] catheter intact. Left radial arterial line. A-Line, PAP, CVP with pressure bag/saline flush. CVP 11. PAP 23/14 (17). SVR 1631. C.O. 2.99 C.I. 1.86. One
AMP Sodium Bicarb IV given per PA order. Patient with abdominal binder intact. Right anterior/right lateral surgical incision with puncture sites intact. Mid-Sternal region with marked slightly swollen, ecchymotic area - PA at bedside to assess
area. Patient with positive pulses. Patient continues on Insulin gtt - Glycemic Protocol. Patient continues on Levophed gtt titration to maintain MAP >65. Assessment as documented.
[2024-01-06 22:05] LABS: Glucose - Point of Care 122 mg/dl (70-99)
[2024-01-06] MEDS: LEVOPHED 250 IV (22:14)
[2024-01-06] MEDS: REGLAN 10 MG IV (22:14)
[2024-01-07] VITALS (25 sets, daily range): BP systolic 95–138; BP diastolic 53–81; PULSE 69; O2SAT 92–95; BMI 18.5
[2024-01-07 00:12] LABS: Glucose - Point of Care 92 mg/dl (70-99)
--- NOTE | 2024-01-07 00:30 | PTCARENOTE ---
Patient vomited 50 ml liquidity clear emesis. Reglan 10 mg IV ordered and administered without difficulty. Positive relief provided. C.I. 2.76 C.I. 1.72. PA aware. Sinus Bradycardia with PVC's. One 6 beat run. Heart rate 50's. No c/o chest
pain, pressure or discomfort. Assessment/Interventions as documented.
[2024-01-07] MEDS: LR 500 IV (00:50)
[2024-01-07 02:09] LABS: Glucose - Point of Care 159 mg/dl (70-99)
--- NOTE | 2024-01-07 02:15 | PTCARENOTE ---
Patient dozing intermittently. No c/o nausea. No further emesis. LR 250 ml IV bolus administered per PA. C.O. 2.82 C.I. 1.75. Patient with no c/o pain or discomfort. Assessment/Interventions as documented.
--- NOTE | 2024-01-07 03:21 | W.PN.CT ---
Documented by User: Segun Ramesh PA-C 01/07/24 05:55
Today's Communication / Plan
-
Plan:
-No major issues overnight. Hemodynamically and neurologically intact
-Pt successfully extubated in the OR
-Weaned off Levophed this AM @ 0300, remains on insulin gtt per protocol
-Noted to be bradycardic (sinus) @ 53 bpm overnight. Held Amiodarone last night and placed BB on hold for this AM
-Cont. current meds (ASA, Protonix, Iron, Vit C)
-Last CI 1.77, mixed venous O2 57.4%, U/O since OR 975 mL
-Monitor chest tube output: Med + R pleural 30/140
-D/C'd a-line and patterson @ 0600
-Kept swan
-Tele phase once off insulin gtt today
-Mag is 2.7, placed mag oxide on hold
-Maintain cordis
-Maintain temporary pacing wire (will remove likely tomorrow)
-Encourage use of IS
-Wean off of O2 as tolerated
-OOB into chair/Ambulate
-Will repeat echo to reassess mitral valve and LV function before d/c home
Assessment / Plan
-
Assessment:
-S/P Right mini thoracotomy with right common femoral artery and vein cannulation under JONATHAN guidance/Radical mitral valve repair (40 mm band annuloplasty, 7 pairs of neochords [place]-Cole sutures with 2 to the anterior leaflet and 5 to the posterior
leaflet, cleft closure between P1 and P2), by Dr. Felix, 01/06/24, pod#1
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
-Severe mitral valve insufficiency, symptomatic
-LVEF 60-65% per intraop JONATHAN
-History of Crohn's disease S/P bowel resection
-Cachectic
-GERD
-Kidney stone
-Anxiety
-Sinus bradycardia
-Acute postop blood loss/Anemia (stable without blood transfusion)
-Acute postop thrombocytopenia (stable without active bleed)
-Acute postop atelectasis
-Acute postop metabolic acidosis
-Acute postop hypovolemia with subsequent hypervolemia
Discussed patient care with: Cardiology, Nursing, Respiratory Therapy, Pharmacy and Care Team
Subjective
Procedure
-S/P Right mini thoracotomy with right common femoral artery and vein cannulation under JONATHAN guidance/Radical mitral valve repair (40 mm band annuloplasty, 7 pairs of neochords [place]-Cole sutures with 2 to the anterior leaflet and 5 to the posterior
leaflet, cleft closure between P1 and P2), by Dr. Felix, 01/06/24
-
Date of Service: January 07, 2024
Pt c/o incisional pain and nausea/vomited x 2 yesterday. Pain relieved with current analgesic and N/V resolved
Objective Data
-
PT 20.0 Sec (11.4-14.6) H 01/06/24 12:45
INR 1.72 01/06/24 12:45
APTT 37.1 Sec (23.4-35.0) H 01/06/24 12:45
Vital Signs
Vital Signs
Temp Pulse Resp BP Pulse Ox
98.9 F 56 23 102/59 100
01/07/24 02:15 01/07/24 02:16 01/07/24 02:16 01/07/24 02:15 01/07/24 02:16
CT Intake/Output/Weight
01/06/24 01/06/24 01/07/24
06:59 18:59 06:59
Intake Total 1295.0 / 1916.7 621.7 / 1916.7
Output Total 690 / 1225 535 / 1225
Balance 605.0 / 691.7 86.7 / 691.7
SaO2: 100 (2L)
Physical Exam
-
General: Awake, Oriented and AOx3
Cardiovascular: No Murmurs, No Rub and No Gallop
Respiratory: Decreased Breath Sounds (at bases, otherwise clear)
Sternum: Stable
Incision: Clean, Dry, Intact and Dressing Intact
Extremities: No Edema
Data Reviewed
-
Lab Results: Results Reviewed
Medications: Active Meds Reviewed
Chest X-Ray: Report Reviewed and Image Reviewed
ECG: Report Reviewed and Image Reviewed

Documented by User: BOLIVAR Robles 01/07/24 10:15
Assessment / Plan
-
Assessment:
-S/P Right mini thoracotomy with right common femoral artery and vein cannulation under JONATHAN guidance/Radical mitral valve repair (40 mm band annuloplasty, 7 pairs of neochords [place]-Cole sutures with 2 to the anterior leaflet and 5 to the posterior
leaflet, cleft closure between P1 and P2), by Dr. Felix, 01/06/24, pod#1
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
-Severe mitral valve insufficiency, symptomatic
-LVEF 60-65% per intraop JONATHAN
-History of Crohn's disease S/P bowel resection
- Cachectic-
Abnormal BMI is not significant
-GERD
-Kidney stone
-Anxiety
-Sinus bradycardia
-Acute postop blood loss/Anemia (stable without blood transfusion)
-Acute postop thrombocytopenia (stable without active bleed)
-Acute postop atelectasis
-Acute postop metabolic acidosis
-Acute postop hypovolemia with subsequent hypervolemia
[2024-01-07] MEDS: ANCEF 5 IV ×2 (03:28→11:24)
[2024-01-07 03:52] LABS: Glucose - Point of Care 107 mg/dl (70-99)
[2024-01-07 03:58] LABS: Mixed Venous O2 Saturation 57.4 %
[2024-01-07 04:01] LABS: Venous Blood Gas B.E. 0.8 mmol/L (-4 to +4); Venous Blood Gas HCO3 25.3 mmol/L (22-27); Venous Blood Gas O2 Sat % 99.1 %; Venous Blood Gas pCO2 39 mmHg (35-48); Venous Blood Gas pH 7.42 (7.32-7.43); Venous Blood Gas pO2 210 mmHg (30-50)
[2024-01-07 04:07] LABS: Venous Blood Gas O2 Therapy BIPAP
[2024-01-07 04:09] LABS: Ionized Calcium 1.15 mMOL/L (1.15-1.33)
[2024-01-07 04:13] LABS: Hematocrit 27.6 % (37.0-47.0); Hemoglobin 9.7 g/dL (12.0-16.0); Mean Corp Hgb Conc. 35.1 g/dL (33.0-37.0); Mean Corpuscular Hgb 30.7 pg (27.0-31.0); Mean Corpuscular Volume 87.3 fL (81.0-99.0); Mean Platelet Volume 10.9 fL (7.4-10.4); Platelet Count 134 10^3/uL (130-400); Red Blood Cell Count 3.16 10^6/uL (4.20-5.40); Red Cell Dist. Width 11.9 % (11.5-14.5); White Blood Cell Count 14.7 10^3/uL (4.8-10.8)
[2024-01-07 04:36] LABS: Blood Urea Nitrogen 19 mg/dl (7-17); Calcium 8.5 mg/dl (8.4-10.2); Carbon Dioxide 27 mmol/L (22-30); Chloride 109 mmol/L (98-107); Estimated Creatinine Clearance 84 ml/min; Glucose 99 mg/dl (70-99); Magnesium 2.7 mg/dl (1.6-2.3); Sodium 142 mmol/L (135-145); eGFR > 60.00
[2024-01-07] MEDS: CALCIUM CHLORIDE 10% SYRINGE 60 MG IV (05:15)
[2024-01-07] MEDS: TYLENOL PO (05:16)
[2024-01-07 06:17] LABS: Glucose - Point of Care 93 mg/dl (70-99)
--- NOTE | 2024-01-07 06:30 | PTCARENOTE ---
Patient A+A+Ox3. No neurological deficits noted. AM lab work collected and sent. EKG completed. Ionized calcium 1.15 - Calcium chloride 1gm/60ml IV administered. C.O. 3.21 C.I. 1.99. Cordis/[place] intact. Left radial arterial line removed.
Cook catheter removed. Patient given CHG bath and linens changed. Patient resting in bed without difficulty. Assessment/Interventions as documented.
--- NOTE | 2024-01-07 07:30 | W.PN.ANS.POP ---
Anesthesia Post Operative
- Anesthesia Post Op Note
Vital Signs Stable-See Nursing Note: Yes
Airway Patent: Yes
Adequate Pain Control: Yes
Change in Mental Status: No
Current Postoperative Nausea & Vomiting: No
Anesthesia Complications: No
General Anesthetic Recall: No
Unplanned Admission: No
Post Op Hydration Adequate: Yes
--- NOTE | 2024-01-07 07:45 | W.PN.CD ---
Today's Communication / Plan
-
stable overnight
remains in sinus
continue post op care per Ct Surgery
Impression / Plan
-
Impression/Plan: 58 y/o female with a history of Crohn's disease and myxomatous mitral valve degeneration (Melton's valve) with symptomatic severe mitral valve regurgitation admitted for elective mitral valve repair/replacement.
#S/P Right mini thoracotomy -Mitral valve repair (40 mm band annuloplasty, 7 pairs of neochords [place]-Cole sutures with 2 to the anterior leaflet and 5 to the posterior leaflet, cleft closure between P1 and P2), by Dr. Felix, 01/06/24
- stable. no pressors
- remains in sinus
- continue post op care as per Dr Felix
#Crohn's disease
-Chronic, stable.
# post op anemia- monitor
Subjective/Interval History:
Currently in surgery.
DATA:
CTA, 11/05/2023:
IMPRESSION:
1. No significant valvular or coronary arterial calcification.
2. Changes of prior bowel resection.
Cardiac Catheterization, 10/08/2023:
CONCLUSIONS:
1. Normal filling pressures with no pulmonary hypertension.
2. Normal left ventricular function with EF 60%.
3. Moderate mitral regurgitation by angiography.
4. Normal coronary arteries.
Transesophageal Echocardiogram, 10/16/2023:
CONCLUSIONS
Normal biventricular size and systolic function without regional wall motion
abnormality.
Myxomatous mitral valve with bileaflet prolapse and severe mitral
regurgitation.
Mild prolapse of the tricuspid leaflets with mild regurgitation.
No prior study available for comparison.
Physical Exam
Vital Signs/Labs
Vital Signs
Temp Pulse Resp BP Pulse Ox
98.8 F 68 25 114/65 98
01/07/24 07:00 01/07/24 07:00 01/07/24 07:00 01/07/24 06:13 01/07/24 07:00
01/06/24 01/07/24 01/08/24
06:59 06:59 06:59
Actual Weight 51.9 kg 55.1 kg
01/07/24 03:46
01/07/24 03:46
PT 20.0 Sec (11.4-14.6) H 01/06/24 12:45
INR 1.72 01/06/24 12:45
APTT 37.1 Sec (23.4-35.0) H 01/06/24 12:45
Magnesium 2.7 mg/dl (1.6-2.3) H 01/07/24 03:46
Physical Exam
Constitutional: No acute distress
Cardiovascular: Rhythm & rate is regular
Respiratory: Respiratory effort normal
GI: Soft and Non tender
Neuro/Psych: Alert
Data Reviewed
-
Date of Service: January 07, 2024
Medical Decision Making: Reviewed Test Results
Echo: Report Reviewed by me
Medical Tests (PFT, Pathology etc): Report Reviewed by me
Labs: Labs Reviewed by me
[2024-01-07] MEDS: ROXICODONE 5 MG PO (07:46)
[2024-01-07] MEDS: LOW STRENGTH ASPIRIN 81 MG PO (07:46)
[2024-01-07] MEDS: NEURONTIN 100 MG PO ×3 (07:47→21:02)
[2024-01-07] MEDS: LIDOCAINE 4% PATCH 1 PATCH TOPICAL (07:47)
[2024-01-07 07:56] LABS: Glucose - Point of Care 80 mg/dl (70-99)
--- NOTE | 2024-01-07 08:00 | PTCARENOTE ---
pt received from previous RN, oriented, in bed. SR on the monitor, HR 60-70s. V wire in place, VVI 40/10. CVP ~12, PAP 20s/10s. CI >2. INTELLIGENCE OPERATIONS SPECIALIST aware. SBP 110-130s. palpable pulses, no edema. pt on 2LNC, 98% POX. lungs diminished. IS encouraged. CT x1, no
air leak or crepitus noted. pt abdomen s/n, +intermittent nausea. hypoactive BS. DTV post Cook removal. R lateral incisions SCOTT, R lateral chest tube dressing old drainage. R groin incision intact. RIJ cordis/ririan maintained. PIV. insulin gtt
running as ordered. RIJ javier dc'd as ordered. see worklist for VS, I&O, and assessment.
[2024-01-07] MEDS: PROTONIX 40 MG PO (08:50)
[2024-01-07] MEDS: SENOKOT-S 1 TABLET PO ×2 (08:50→19:45)
[2024-01-07] MEDS: LASIX 40 MG IV (08:50)
[2024-01-07] MEDS: BACTROBAN 2% OINTMENT 1 APPLIC NASAL ×2 (08:51→19:45)
--- NOTE | 2024-01-07 09:11 | W.PN.INTV ---
Today's Communication / Plan
Recommendations
Up OOB as tolerated
Encourage incentive spirometer
Pain control
Check VBG tomorrow AM off of BiPAP - if pH 7.35-7.45 then she does not need PAP with sleep.
Patient has been transferred to CVICU�telemetry status. Hand Stripper/Pulmonary service will now sign off. Thank you for allowing us to be involved in the care of this patient. Please reconsult if there are any additional questions/concerns, or if
patient's respiratory status deteriorates.
Assessment
-
Assessment: 58-year-old female with a past medical history of Crohn's disease s/p bowel resection and mitral valve regurgitation who presents with elective mitral valve repair. Patient known to cardiothoracic surgery via Dr. Felix with last office
visit on 12/06/2023. Patient has known myxomatous degeneration of mitral valve with JONATHAN on 10/16/2023 showing a Melton appearing valve with bileaflet prolapse. She has palpitations in her chest and her symptoms at prior office visit in October 2023 met
stage D symptomatology and class I indication for mitral valve intervention. Risks and benefits of surgical intervention were discussed and she consented for mitral valve repair. Today she underwent right minithoracotomy with radical mitral valve
repair. There were no complications and she was transferred to the CVICU postoperatively for further care. Critical care services now consulted for additional management/recommendations.
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
Impression:
#Severe mitral valve regurgitation s/p radical mitral valve repair� POD #1
#Acute respiratory failure with hypercapnia and hypoxia extubated to BiPAP 16/6 bled with 5L/min --> now on room air
#Suspected chronic hypercapnic respiratory failure
#Anemia
#Thrombocytopenia
#Hyperglycemia � improved
Plan:
Patient currently on room air breathing comfortably
She did not wear her BiPAP overnight
She likely has chronic hypercapnea. Her serum HCO3 level has been between 28-30 since 06/2020. Would trial off BiPAP tonight and check VBG in the AM - if pH normal (7.35-7.45) with stable hypercapnia, then she can stop using BiPAP assuming she has
no clinical Sx of CO2 narcosis. If pH <7.35 then she should continue nocturnal BiPAP while hospitalized and also s/p discharge. Would c/s case management in that case.
Maintain SpO2 >90-94%
Encourage incentive spirometer use
prn nebulized bronchodilators
PAC removed
Replete electrolytes with K>4, Mg>2
Right-sided chest tube removed today
Monitor hemoglobin
Monitor platelet count and coags
Transfuse blood product if needed to keep Hb>7, plt>50k
Monitor blood sugar with BG goal 140-180
Insulin SQ supplementation as needed to maintain BG goal as above
Aspiration precautions
DVT prophylaxis
Early nutrition
Early mobilization
Cardiac rehab
Patient has been transferred to CVICU�telemetry status. Hand Stripper/Pulmonary service will now sign off. Thank you for allowing us to be involved in the care of this patient. Please reconsult if there are any additional questions/concerns, or if
patient's respiratory status deteriorates.
Data:
CXR 01-07-2024: Tube/catheter projects over the right lower hemithorax, stable; Tiny right apical pneumothorax, which appears slightly smaller than on chest radiograph of January 05 at 1250 hours; Small right pleural effusion.
Patchy parenchymal opacity within both lower lungs, most likely atelectasis.
CXR 01-06-2024: New left basilar probable atelectasis
Total time spent today was 55 minutes for this encounter. Time includes reviewing laboratory test/imaging results, reviewing pertinent medical records, obtaining and reviewing medical history, performing an appropriate exam, ordering medications,
tests and procedures. Time also includes documentation of this encounter, coordinating patient care and communicating with other healthcare professionals. Total time does not include separately billed tests performed on this date of service.
Subjective Dataa
Subjective Data
Date of Service:
Date of Service: January 07, 2024
Chief Complaint: Hand Stripper Follow Up
Subjective:
Patient seen and evaluated at bedside. She is doing well, she just feels tired today. She is on room air breathing comfortably. SpO2 94%. BP 126/74 and HR: 71. She wore 2 L/min nasal cannula overnight. She denies headache, chest pain,
abdominal pain, fevers or chills.
Review of Systems
General: Other (Negative unless mentioned above)
Objective Data
Data Reviewed
Vital Signs / I&O / Oxygen:
Vital Signs
Temp Pulse Resp BP Pulse Ox
98.8 F 68 25 129/75 98
01/07/24 07:00 01/07/24 07:00 01/07/24 07:00 01/07/24 08:50 01/07/24 07:00
Intake and Output
01/06/24 01/07/24 01/08/24
06:59 06:59 06:59
Intake Total 2315.4 / 2366.0 50.6 / 50.6
Output Total 1395 / 1395
Balance 920.4 / 971.0 50.6 / 50.6
SaO2 98
Nasal Cannula flow liters per 2
minute
Physical Exam
General: Respiratory Distress (Negative) and Comfortable
HEENT: Normocephalic and Anicteric
Cardiovascular: S1-S2 and Peripheral Edema (Negative)
Respiratory: Wheeze (Negative), Crackles (Negative), Rhonchi (Negative) and Non-Labored Respirations
GI: Soft, Non Distended, Non Tender and Normal Bowel Sounds
Neurology: AO x 3 and Tremors (Negative)
Skin: Warm, Dry and Cyanosis (Negative)
Labs/Micro/Reports
Lab Data
01/07/24 03:46
01/07/24 03:46
Laboratory Results
01/06/24 01/06/24
12:45 14:24
PT 20.0 H
INR 1.72
APTT 37.1 H
pH 7.12 L* 7.32 L
pCO2 81 H* 46 H
pO2 100 138 H
HCO3 26.3 23.7
O2 Delivery Level
--- NOTE | 2024-01-07 10:00 | PN.CDI ---
CDI
- -
CDI:
Physician Documentation Request
Admit Date: 01/06/24 05:[address] Surgery,
Patient admitted for mitral valve insufficiency.
Clinical Indicators:
Height: 5' 8'
Weight:121 lbs
BMI:18.5
If possible, please provide an associated diagnosis related to the abnormal BMI, such as:
Underweight
Cachectic
Abnormal BMI is not significant
Other
BMI < or = to 19.9
Underweight
Weight Loss
Cachectic
Anorexia
Use of terms such as suspected, likely, concern for, or probable (associated with a specific diagnosis that is being evaluated, monitored, or treated as if it exists) are acceptable and can be coded in the inpatient setting, when documented at the
time of discharge.
Thank you,
Palma Resendez RN, BSN
CDI Specialist
Available via [employer] text
Please use your independent medical judgment in providing your response.
[2024-01-07 10:26] LABS: Glucose - Point of Care 132 mg/dl (70-99)
[2024-01-07] MEDS: REGLAN 10 MG IV (11:24)
--- NOTE | 2024-01-07 12:15 | PTCARENOTE ---
pt ambulated in hallways w/ CR, no dumping from CTs, pt placed back to bed. R lat CT dc'd by CALENDER WIND UP HELPER, dressing c/d/i. pt OOB in chair, VSS.
[2024-01-07 12:34] LABS: Glucose - Point of Care 89 mg/dl (70-99)
[2024-01-07] MEDS: NSS IV (13:10)
[2024-01-07] MEDS: FERRLECIT 110 MG IV (13:10)
[2024-01-07] MEDS: TYLENOL 1000 MG PO ×2 (13:10→21:02)
[2024-01-07 13:15] LABS: Glucose - Point of Care 97 mg/dl (70-99)
--- NOTE | 2024-01-07 16:30 | PTCARENOTE ---
pt VSS, no changes in assessment. pt resting between care.
[2024-01-07] MEDS: LOPRESSOR 12.5 MG PO (19:45)
--- NOTE | 2024-01-07 20:00 | PTCARENOTE ---
assumed care of pt from previous RN. pt A&Ox4, resting in chair at time of assessment. SR on tele-monitor, HR 60s-70s. palpable peripheral pulses. no edema noted. temp epicardial V-wires insulated. pacer box on, in room. backup settings 40/10. POX
95% on RA. abd s/n, +BS. no c/o nausea at time of assessment. pt voiding clear, yellow urine in bathroom. surgical sites stable, dressings CDI. R IJ cordis w/ KVO. PIV intact. pt ambulated ~240' in hallway w/ this RN. pt placed back to bed w/o
issue. plan of care discussed w/ pt, pt in agreement.
[2024-01-08] VITALS (13 sets, daily range): BP systolic 78–111; BP diastolic 45–64; PULSE 69; O2SAT 97–99; BMI 18.6
--- NOTE | 2024-01-08 00:30 | PTCARENOTE ---
assessment remains unchanged. sinus irving to SR on tele-monitor. POX 93% on RA. BP 82/61 on R arm. 78/49 on L arm. pt asymptomatic. CVPA aware. will recheck BP in one hour.
--- NOTE | 2024-01-08 02:51 | W.PN.CT ---
Today's Communication / Plan
-
-pod #2
-no issues overnight, A&O x3
-on RA overnight, pOx 93%. VB.39/47/64/28.5/92.9
-hypotensive overnight 70s-90s while sleeping, asymptomatic- monitor
-current meds (ASA, Lopressor 12.5 bid, Amio tid, Protonix, iv iron)
-encourage IS, OOB
Assessment / Plan
-
Assessment:
-S/P Right mini thoracotomy with right common femoral artery and vein cannulation under JONATHAN guidance/Radical mitral valve repair (40 mm band annuloplasty, 7 pairs of neochords [place]-Cole sutures with 2 to the anterior leaflet and 5 to the posterior
leaflet, cleft closure between P1 and P2), by Dr. Felix, 01/06/24, pod#2
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
-Severe mitral valve insufficiency, symptomatic
-LVEF 60-65% per intraop JONTAHAN
-History of Crohn's disease S/P bowel resection
- Cachectic-
Abnormal BMI is not significant
-GERD
-Kidney stone
-Anxiety
-Sinus bradycardia
-Acute postop blood loss/Anemia (stable without blood transfusion)
-Acute postop thrombocytopenia (stable without active bleed)
-Acute respiratory failure with hypercapnia and hypoxia extubated to BiPAP 16 bled with 5L/min --> now on room air
-Suspected chronic hypercapnic respiratory failure
-Acute postop atelectasis
-Acute postop hypovolemia with subsequent hypervolemia
Discussed patient care with: Nursing and Care Team
Subjective
Procedure
-S/P Right mini thoracotomy with right common femoral artery and vein cannulation under JONATHAN guidance/Radical mitral valve repair (40 mm band annuloplasty, 7 pairs of neochords [place]Cole sutures with 2 to the anterior leaflet and 5 to the posterior
leaflet, cleft closure between P1 and P2), by Dr. Felix, 01/06/24
-
Date of Service: January 08, 2024
Objective Data
-
PT 20.0 Sec (11.4-14.6) H 01/06/24 12:45
INR 1.72 01/06/24 12:45
APTT 37.1 Sec (23.4-35.0) H 01/06/24 12:45
Vital Signs
Vital Signs
Temp Pulse Resp BP Pulse Ox
98.0 F 72 18 94/52 93
01/08/24 00:00 01/08/24 01:20 01/08/24 00:00 01/08/24 01:20 01/08/24 01:20
CT Intake/Output/Weight
01/07/24 01/07/24 01/08/24
06:59 18:59 06:59
Intake Total 1020.4 / 2366.0 256.2 / 336.2 80 / 336.2
Output Total 705 / 1395 1180 / 1280 100 / 1280
Balance 315.4 / 971.0 -923.8 / -943.8 -20 / -943.8
SaO2: 93
Physical Exam
-
General: Awake and AOx3
Cardiovascular: Regular rate & rhythm, Murmur (1/6 systolic murmur @ lsb) and No Rub
Respiratory: Decreased Breath Sounds
Sternum: Stable
Incision: Clean and Dry
Extremities: No Edema (2+ DP b/l)
Abdomen: soft, nontender, nondistended, + bowel sounds
Data Reviewed
-
Lab Results: Results Reviewed
Medications: Active Meds Reviewed
Chest X-Ray: Report Reviewed and Image Reviewed
ECG: Report Reviewed and Image Reviewed
[2024-01-08 03:27] LABS: Venous Blood Gas HCO3 28.5 mmol/L (22-27); Venous Blood Gas O2 Sat % 92.9 %; Venous Blood Gas pCO2 47 mmHg (35-48); Venous Blood Gas pH 7.39 (7.32-7.43); Venous Blood Gas pO2 64 mmHg (30-50)
[2024-01-08 03:58] LABS: Hematocrit 28.1 % (37.0-47.0); Hemoglobin 9.4 g/dL (12.0-16.0); Mean Corp Hgb Conc. 33.5 g/dL (33.0-37.0); Mean Corpuscular Hgb 30.7 pg (27.0-31.0); Mean Corpuscular Volume 91.8 fL (81.0-99.0); Mean Platelet Volume 11.2 fL (7.4-10.4); Platelet Count 105 10^3/uL (130-400); Red Blood Cell Count 3.06 10^6/uL (4.20-5.40); Red Cell Dist. Width 12.2 % (11.5-14.5); White Blood Cell Count 16.3 10^3/uL (4.8-10.8)
[2024-01-08 04:14] LABS: Blood Urea Nitrogen 22 mg/dl (7-17); Carbon Dioxide 29 mmol/L (22-30); Chloride 100 mmol/L (98-107); Estimated Creatinine Clearance 67 ml/min; Glucose 117 mg/dl (70-99); Magnesium 2.4 mg/dl (1.6-2.3); Potassium 4.6 mmol/L (3.5-5.1); Sodium 134 mmol/L (135-145); eGFR > 60.00
[2024-01-08] MEDS: TYLENOL 1000 MG PO ×3 (05:49→20:06)
--- NOTE | 2024-01-08 07:40 | W.PN.CD ---
Today's Communication / Plan
-
Remains in sinus. PVCs , and [place] tele
received one dose of metoprolol 12.5mg. lower BP overnight but currently sbp 102. Continue low dose BB as BP will tolerate
Impression / Plan
-
Impression/Plan: 58 y/o female with a history of Crohn's disease and myxomatous mitral valve degeneration (Melton's valve) with symptomatic severe mitral valve regurgitation admitted for elective mitral valve repair/replacement.
#S/P Right mini thoracotomy -Mitral valve repair (40 mm band annuloplasty, 7 pairs of neochords [place]-Cole sutures with 2 to the anterior leaflet and 5 to the posterior leaflet, cleft closure between P1 and P2), by Dr. Felix, 01/06/24
- stable. no pressors
- remains in sinus
- continue post op care as per Dr Felix
- received one dose of metoprolol 12.5mg. lower BP overnight but currently sbp 102. Continue low dose BB as BP will tolerate
#Crohn's disease
-Chronic, stable.
# post op anemia- monitor
Subjective/Interval History:
Currently in surgery.
DATA:
CTA, 11/05/2023:
IMPRESSION:
1. No significant valvular or coronary arterial calcification.
2. Changes of prior bowel resection.
Cardiac Catheterization, 10/08/2023:
CONCLUSIONS:
1. Normal filling pressures with no pulmonary hypertension.
2. Normal left ventricular function with EF 60%.
3. Moderate mitral regurgitation by angiography.
4. Normal coronary arteries.
Transesophageal Echocardiogram, 10/16/2023:
CONCLUSIONS
Normal biventricular size and systolic function without regional wall motion
abnormality.
Myxomatous mitral valve with bileaflet prolapse and severe mitral
regurgitation.
Mild prolapse of the tricuspid leaflets with mild regurgitation.
No prior study available for comparison.
Physical Exam
Vital Signs/Labs
Vital Signs
Temp Pulse Resp BP Pulse Ox
98.2 F 72 20 102/64 93
01/08/24 04:00 01/08/24 05:30 01/08/24 04:00 01/08/24 03:16 01/08/24 04:00
01/07/24 01/08/24 01/09/24
06:59 06:59 06:59
Actual Weight 55.1 kg 55.5 kg
01/08/24 03:22
01/08/24 03:22
PT 20.0 Sec (11.4-14.6) H 01/06/24 12:45
INR 1.72 01/06/24 12:45
APTT 37.1 Sec (23.4-35.0) H 01/06/24 12:45
Magnesium 2.4 mg/dl (1.6-2.3) H 01/08/24 03:22
Physical Exam
Constitutional: No acute distress
Cardiovascular: Rhythm & rate is regular and Other (no murmur)
Respiratory: Wheeze Absent and Rhonchi Absent
GI: Soft
Neuro/Psych: Alert
Data Reviewed
-
Date of Service: January 08, 2024
Medical Decision Making: Reviewed Test Results
EKG: Report Reviewed by me
Medical Tests (PFT, Pathology etc): Report Reviewed by me
Labs: Labs Reviewed by me
--- NOTE | 2024-01-08 08:00 | PTCARENOTE ---
pt received from previous RN, oriented, OOB in chair. SR on the monitor, HR 60s. V wire in place, insulated. SBP 90-110s. palpable pulses, no edema. pt on RA, 92% POX. lungs diminished. IS encouraged, 1000ml. pt abdomen s/n, pt denies n/v, diet
tolerated, +flatus per pt. voids. surgical incisions c/d/i. R lateral chest tube dressing c/d/i. RIJ cordis maintained. PIV. see worklist for VS, I&O, and assessment.
[2024-01-08] MEDS: LIDOCAINE 4% PATCH 1 PATCH TOPICAL (08:09)
[2024-01-08] MEDS: PROTONIX 40 MG PO (08:09)
[2024-01-08] MEDS: TOPROL XL 12.5 MG PO (08:09)
[2024-01-08] MEDS: LOW STRENGTH ASPIRIN 81 MG PO (08:09)
[2024-01-08] MEDS: SENOKOT-S 1 TABLET PO ×2 (08:09→20:06)
[2024-01-08] MEDS: NEURONTIN 100 MG PO ×3 (08:09→20:06)
[2024-01-08] MEDS: BACTROBAN 2% OINTMENT 1 APPLIC NASAL ×2 (08:10→20:06)
[2024-01-08] MEDS: LASIX 20 MG IV (09:27)
--- NOTE | 2024-01-08 11:48 | PTCARENOTE ---
Assumed care of pt from previous RN; NSR on monitor and VSS; RIJ Cordis and PIVx1 all patent; Lungs diminished; IS to 1000; positive bowel sounds; pt voiding clear yellow urine; palpable pulses throughout; no edema noted; surgical sites C/D/I;
updated pt on plan of care and Echo; family at bedside.
[2024-01-08] MEDS: FERRLECIT 110 MG IV (13:33)
[2024-01-08] MEDS: NSS 500 IV (15:58)
--- NOTE | 2024-01-08 17:07 | PTCARENOTE ---
NSR on monitor and VSS; assessment unchanged.
--- NOTE | 2024-01-08 20:00 | PTCARENOTE ---
assumed care of pt from previous RN. pt A&Ox4, resting in bed at time of assessment. no c/o pain at this time. VSS. SR on tele-monitor. HR 70s. temp epicardial v-wires. pacer on, not plugged in. backup settings 40/10. POX 99% on RA. pt voiding
clear, yellow urine in bathroom. pt ambulating in halls independently. R IJ cordis w/ KVO. PIV intact. all surgical sites stable, dressings CDI. see worklist for complete nursing assessment, interventions, VS, and I&Os.
[2024-01-09] VITALS (7 sets, daily range): BP systolic 99–110; BP diastolic 50–67; PULSE 71; O2SAT 96–98; BMI 18.7
--- NOTE | 2024-01-09 00:25 | PTCARENOTE ---
assessment remains unchanged. VSS.
[2024-01-09 04:01] LABS: Hematocrit 25.2 % (37.0-47.0); Hemoglobin 8.7 g/dL (12.0-16.0); Mean Corp Hgb Conc. 34.5 g/dL (33.0-37.0); Mean Corpuscular Hgb 31.3 pg (27.0-31.0); Mean Corpuscular Volume 90.6 fL (81.0-99.0); Mean Platelet Volume 10.7 fL (7.4-10.4); Platelet Count 93 10^3/uL (130-400); Red Blood Cell Count 2.78 10^6/uL (4.20-5.40); Red Cell Dist. Width 11.9 % (11.5-14.5); White Blood Cell Count 9.6 10^3/uL (4.8-10.8)
[2024-01-09 04:27] LABS: Blood Urea Nitrogen 14 mg/dl (7-17); Calcium 8.3 mg/dl (8.4-10.2); Carbon Dioxide 33 mmol/L (22-30); Chloride 102 mmol/L (98-107); Estimated Creatinine Clearance 90 ml/min; Glucose 98 mg/dl (70-99); Magnesium 2.1 mg/dl (1.6-2.3); Potassium 3.9 mmol/L (3.5-5.1); Sodium 137 mmol/L (135-145); eGFR > 60.00
--- NOTE | 2024-01-09 05:09 | W.PN.CT ---
Today's Communication / Plan
-
-pod #3
-no issues overnight, ambulates without difficulty
-Echo 01/07 reviewed: nl EF, no wma, MV grad peak/mean 5/2 mmHg
-platelets trended down - 93K today - follow
-weaned off O2 - pOx 94% on RA
-ambulate
-d/c home
Assessment / Plan
-
Assessment:
-S/P Right mini thoracotomy with right common femoral artery and vein cannulation under JONATHAN guidance/Radical mitral valve repair (40 mm band annuloplasty, 7 pairs of neochords [place]-Cole sutures with 2 to the anterior leaflet and 5 to the posterior
leaflet, cleft closure between P1 and P2), by Dr. Felix, 01/06/24, pod#3
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
-Severe mitral valve insufficiency, symptomatic
-LVEF 60-65% per intraop JONATHAN
-History of Crohn's disease S/P bowel resection
- Cachectic-
Abnormal BMI is not significant
-GERD
-Kidney stone
-Anxiety
-Sinus bradycardia
-Acute postop blood loss/Anemia (stable without blood transfusion)
-Acute postop thrombocytopenia (stable without active bleed)
-Acute respiratory failure with hypercapnia and hypoxia extubated to BiPAP 16/6 bled with 5L/min --> now on room air
-Suspected chronic hypercapnic respiratory failure
-Acute postop atelectasis
-Acute postop hypovolemia with subsequent hypervolemia
Discussed patient care with: Nursing and Care Team
Subjective
Procedure
-S/P Right mini thoracotomy with right common femoral artery and vein cannulation under JONATHAN guidance/Radical mitral valve repair (40 mm band annuloplasty, 7 pairs of neochords [place]-Cole sutures with 2 to the anterior leaflet and 5 to the posterior
leaflet, cleft closure between P1 and P2), by Dr. Felix, 01/06/24
-
Date of Service: January 09, 2024
Objective Data
-
Lab Results
01/09/24 03:44
01/09/24 03:44
PT 20.0 Sec (11.4-14.6) H 01/06/24 12:45
INR 1.72 01/06/24 12:45
APTT 37.1 Sec (23.4-35.0) H 01/06/24 12:45
Vital Signs
Vital Signs
Temp Pulse Resp BP Pulse Ox
98.0 F 72 12 109/67 94
01/09/24 03:56 01/09/24 03:40 01/09/24 03:56 01/09/24 03:40 01/09/24 03:56
CT Intake/Output/Weight
01/08/24 01/08/24 01/09/24
06:59 18:59 06:59
Intake Total 120 / 376.2 160 / 280 120 / 280
Output Total 350 / 1530 550 / 550
Balance -230 / -1153.8 -390 / -270 120 / -270
SaO2: 94
Physical Exam
-
General: Awake and AOx3
Cardiovascular: Regular rate & rhythm, No Murmurs and No Rub
Respiratory: Decreased Breath Sounds
Incision: Clean, Dry and Dressing Intact
Extremities: No Edema
Data Reviewed
-
Lab Results: Results Reviewed
Medications: Active Meds Reviewed
Chest X-Ray: Report Reviewed and Image Reviewed
ECG: Report Reviewed and Image Reviewed
[2024-01-09] MEDS: TYLENOL 1000 MG PO (06:30)
--- NOTE | 2024-01-09 07:30 | PTCARENOTE ---
Assumed care of patient from table games shift manager RN. AAO x 3. C/o mild incisional discomfort. SR on monitor. Epicardial wire insulated. Lungs clear bilaterally, IS to 1000. 95 % room air. Voiding w/o issue. Pulses palpable. Surgical sites c,d,i.
Plan for day discussed.
--- NOTE | 2024-01-09 08:20 | W.PN.CD ---
Today's Communication / Plan
-
In sinus
continue metoptolol
monitor post op anemia
post op care per CT surgery
Impression / Plan
-
Impression/Plan: 58 y/o female with a history of Crohn's disease and myxomatous mitral valve degeneration (Melton's valve) with symptomatic severe mitral valve regurgitation admitted for elective mitral valve repair/replacement.
#S/P Right mini thoracotomy -Mitral valve repair (40 mm band annuloplasty, 7 pairs of neochords [place]-Cole sutures with 2 to the anterior leaflet and 5 to the posterior leaflet, cleft closure between P1 and P2), by Dr. Felix, 01/06/24
- stable. no pressors
- remains in sinus
- continue post op care as per Dr Felix
- continue low dose metoprolol
#Crohn's disease
-Chronic, stable.
# post op anemia- monitor
Subjective/Interval History:
Currently in surgery.
DATA:
CTA, 11/05/2023:
IMPRESSION:
1. No significant valvular or coronary arterial calcification.
2. Changes of prior bowel resection.
Cardiac Catheterization, 10/08/2023:
CONCLUSIONS:
1. Normal filling pressures with no pulmonary hypertension.
2. Normal left ventricular function with EF 60%.
3. Moderate mitral regurgitation by angiography.
4. Normal coronary arteries.
Transesophageal Echocardiogram, 10/16/2023:
CONCLUSIONS
Normal biventricular size and systolic function without regional wall motion
abnormality.
Myxomatous mitral valve with bileaflet prolapse and severe mitral
regurgitation.
Mild prolapse of the tricuspid leaflets with mild regurgitation.
No prior study available for comparison.
Physical Exam
Vital Signs/Labs
Vital Signs
Temp Pulse Resp BP Pulse Ox
98.0 F 72 12 109/67 94
01/09/24 03:56 01/09/24 03:40 01/09/24 03:56 01/09/24 03:40 01/09/24 05:11
01/08/24 01/09/24 01/10/24
06:59 06:59 06:59
Actual Weight 55.5 kg 55.8 kg
01/09/24 03:44
01/09/24 03:44
PT 20.0 Sec (11.4-14.6) H 01/06/24 12:45
INR 1.72 01/06/24 12:45
APTT 37.1 Sec (23.4-35.0) H 01/06/24 12:45
Magnesium 2.1 mg/dl (1.6-2.3) 01/09/24 03:44
Physical Exam
Constitutional: No acute distress
Cardiovascular: Rhythm & rate is regular
Respiratory: Respiratory effort normal
GI: Soft
Neuro/Psych: Alert
Data Reviewed
-
Date of Service: January 09, 2024
EKG: Report Reviewed by me
Medical Tests (PFT, Pathology etc): Report Reviewed by me
[2024-01-09] MEDS: BACTROBAN 2% OINTMENT 1 APPLIC NASAL (08:21)
[2024-01-09] MEDS: FLEXERIL 5 MG PO (08:22)
[2024-01-09] MEDS: NEURONTIN 100 MG PO (08:23)
[2024-01-09] MEDS: SENOKOT-S 1 TABLET PO (08:23)
[2024-01-09] MEDS: LIDOCAINE 4% PATCH TOPICAL (08:24)
[2024-01-09] MEDS: PROTONIX 40 MG PO (08:24)
[2024-01-09] MEDS: TOPROL XL 12.5 MG PO (08:24)
[2024-01-09] MEDS: LOW STRENGTH ASPIRIN 81 MG PO (08:24)
--- NOTE | 2024-01-09 08:58 | W.DCSUMMARY ---
Discharge Summary
Discharge Data
Date of Admission: 01/06/24
Date of Discharge: 01/09/24
-
Pending Results: No
Hospital Course
Primary care physician: Miguel Jiang
Outpatient housing installer: Darrel Lund
Inpatient consultants: [facility]
Procedures:
1. Right mini thoracotomy, radical mitral valve repair (#40 mm band annuloplasty, 7 pairs of neochords [place]-Cole sutures with 2 to the anterior leaflet and 5 to the posterior leaflet, cleft closure between P1 and P2)
Primary Diagnosis:
1. Myxomatous mitral valve degeneration, Melton valve disease with severe mitral valve sufficiency
Secondary Diagnoses:
1. History of Crohn's disease
2. Kidney stone
3. Anxiety
4. Post-op acute hypoxic respiratory failure
5. Acute surgical blood loss anemia-expected
HPI: 57-year-old female was electively admitted on 01/06/2024 for mitral valve repair.
Hospital course: Patient underwent a right mini thoracotomy with right common femoral artery and vein cannulation for radical mitral valve repair (#40 mm band annuloplasty, 7 pairs of neochords [place]-Coel sutures with 2 to the anterior leaflet and 5
to the posterior leaflet, cleft closure between P1 and P2) by Dr. Sebas Felix. Patient received no intraoperative blood products. Patient was extubated in the operating room and returned to CVICU on Levophed, Precedex, and insulin. Postoperative
ABG noted respiratory acidosis. Patient was placed on BiPAP and fluid administered. Subsequent ABG improved and BiPAP was discontinued. Postoperative day #1, [place] catheter and chest tubes were removed. [place] catheter was removed. Patient
was out of bed and ambulatory. On postoperative day #2, the patient was diuresed with 20 mg of IV Lasix. A transthoracic echocardiogram reported an EF of 55 to 60%. Mitral valve gradients were 5/2 mmHg. Postoperative day #3, temporary
ventricular wires were clipped at skin level and right IJ catheter removed. Patient with hemoglobin of 8.7 and platelet count of 93,000. Patient is deemed stable for discharge
Home medication changes:
see below
Discharge Plan
-
Patient Disposition: Home (Routine Discharge)
Discharge Diagnosis/Procedures: mitral valve repair
Condition: Good
Diet: No restrictions
Activity: No strenuous activity
Driving Restrictions: Not until seen by your Dr
Bathing Restrictions: OK to Shower
Blood Work: CBC no diff in 1 week
Other Services: Cardiac Rehab
Specialty Instructions: Weigh Daily- Call MD for wt gain/loss 3 lbs overnight/5 lbs in 1 week
Referrals:
CT Transitional Care Nurse [Outside]
(
The Cardiothoracic Transitional Care Nurse will call you to set up a visit in 1-2 days.)
[facility]. Cardiac Rehab [Outside] - 02/12/24 10:00 am
(Cardiac Rehab Orientation appointment is on February 12 2024 @ 10:00am
The Cardiac Rehab gym is located on the first floor of the [facility].)
Lolly Ambrocio CRNP [Specified Professional Personl] - 02/24/24 10:00 am
Miguel White MD [Family Provider] -
Sebas Felix MD [Active] - 02/12/24 2:15 pm
Prescriptions:
New
aspirin [Children's Aspirin] 81 mg Tablet,Chewable
81 mg PO DAILY Qty: 0 0RF
metoprolol succinate 25 mg Tablet Extended Release 24 Hr
12.5 mg PO DAILY Qty: 30 1RF
oxycodone 5 mg Tablet
5 mg PO Q6HPRN PRN (Reason: severe pain) Qty: 30 0RF
gabapentin 100 mg Capsule
100 mg PO TID Qty: 30 0RF
Discharge Orders:
Discharge Patient (As Directed); Ordered 01/09/24
Ordered By: Aparna Calderón
Care Plan Goals
Care Plan Goals:
Problem: Readiness for enhanced knowledge related to diagnosis and treatment plan
Goal: Understand your diagnosis and treatment plan needs, including medications if applicable.
Instructions: Know your diagnosis, underlying causes and treatment plan options, including medications if applicable. Consult with your health care team to learn about your diagnosis and treatment plan, including medications if applicable.
Discharge Date and Time
Print Language: BULGARIAN
--- NOTE | 2024-01-09 11:38 | CM ---
CM following for DC planning needs.
Met w/ patient at bedside. Pt. anticipating DC to home today. She reports that she is feeling well.
Reviewed DC plan for home w/ CT Transitional Care RN.
No additional needs identified.
--- NOTE | 2024-01-09 12:17 | PTCARENOTE ---
discharge instructions reviewed with patient and mother. Questions answered. INT and telemetry removed. Wheeled to car by volunteer.
== END 2024-01-09 12:48 | disposition home or self-care (01) | DRG 219 ==
LOC: CVICU 05:16
PROVIDERS: Anesthesiology; Clinical Nurse Specialist Acute Care; ADMITTING PHYSICIAN Thoracic Surgery (Cardiothoracic Vascular Surgery); CONSULT PHYSICIAN Internal Medicine Critical Care Medicine; FAMILY PHYSICIAN Internal Medicine
PROC: B24BZZ4 Ultrasonography of Heart with Aorta, Transesophageal (ICD-10-PCS; 2024-01-06)
PROC: 5A09357 Assistance with Respiratory Ventilation, Less than 24 Consecutive Hours, Continuous Positive Airway Pressure (ICD-10-PCS; 2024-01-06)
PROC: 02UG0JZ Supplement Mitral Valve with Synthetic Substitute, Open Approach (ICD-10-PCS; 2024-01-06)
PROC: 5A1221Z Performance of Cardiac Output, Continuous (ICD-10-PCS; 2024-01-06)
DX: I34.0 Nonrheumatic mitral (valve) insufficiency (principal); J95.821 Acute postprocedural respiratory failure; D62 Acute posthemorrhagic anemia; K50.90 Crohn's disease, unspecified, without complications; E87.29 Other acidosis; J98.11 Atelectasis; Z68.1 Body mass index [BMI] 19.9 or less, adult; Y83.2 Surgical operation with anastomosis, bypass or graft as the cause of abnormal reaction of the patient, or of later complication, without mention of misadventure at the time of the procedure; F41.9 Anxiety disorder, unspecified; D69.59 Other secondary thrombocytopenia; R73.9 Hyperglycemia, unspecified; Z82.49 Family history of ischemic heart disease and other diseases of the circulatory system; Z87.442 Personal history of urinary calculi; Z90.49 Acquired absence of other specified parts of digestive tract
CPT/HCPCS: 36415; 71045; 80048; 80053; 81003; 81015; 82248; 82330; 82565; 82805; 82810; 82947; 82962; 83036; 83735; 84132; 84302; 84520; 85014; 85018; 85025; 85027; 85049; 85610; 85730; 86850; 86900; 86901; 86920; 87070; 87071; 87086; 87186; 93005; 93306; 93312; 93320; 93325; 94660; J2916; P9045; P9047

== ENCOUNTER 2024-01-12 20:41 | Inpatient (IN) | payer OTHER, SELFPAY ==
[2024-01-12] VITALS (23 sets, daily range): BP systolic 88–131; BP diastolic 42–92; BMI 19.5
[2024-01-12 16:17] LABS: % Basophils 0.3 % (0-2); % Immature Granulocytes 0.4 % (0-0.5); % Lymphocytes 10.1 % (20.5-51.1); % Monocytes 7.6 % (1.7-9.3); % Neutrophils 80.6 % (42.2-75.2); Absolute Eosinophils 0.1 10^3/uL (0-0.7); Absolute Monocytes 0.7 10^3/uL (0.1-0.6); Absolute Neutrophils 7.6 10^3/uL (1.4-6.5); Hematocrit 29.8 % (37.0-47.0); Hemoglobin 10.3 g/dL (12.0-16.0); Mean Corp Hgb Conc. 34.6 g/dL (33.0-37.0); Mean Corpuscular Hgb 30.8 pg (27.0-31.0); Mean Corpuscular Volume 89.2 fL (81.0-99.0); Mean Platelet Volume 9.5 fL (7.4-10.4); Nucleated Red Blood Cells % 0 %; Platelet Count 225 10^3/uL (130-400); Red Blood Cell Count 3.34 10^6/uL (4.20-5.40); Red Cell Dist. Width 11.8 % (11.5-14.5); White Blood Cell Count 9.5 10^3/uL (4.8-10.8)
[2024-01-12 16:32] LABS: ALT (SGPT) 33 U/L (0-35); AST (SGOT) 38 U/L (14-36); Albumin 3.2 g/dl (3.5-5.0); Alkaline Phosphatase 95 U/L (38-126); Blood Urea Nitrogen 8 mg/dl (7-17); Calcium 8.8 mg/dl (8.4-10.2); Carbon Dioxide 28 mmol/L (22-30); Chloride 104 mmol/L (98-107); Estimated Creatinine Clearance 94 ml/min; Glucose 107 mg/dl (70-99); Sodium 138 mmol/L (135-145); Total Bilirubin 1.1 mg/dl (0.2-1.3); Total Protein 5.7 g/dl (6.3-8.2); eGFR > 60.00
[2024-01-12 16:42] LABS: Troponin I 0.375 ng/ml
--- NOTE | 2024-01-12 17:17 | ED.GENMED ---
Addendum entered and electronically signed by Joseph Lei, DO 01/12/24 21:52:
Because the disposition went from admission to discharge, the EMR was unable to allow me to print discharge information. Patient was given verbal instructions to double her metoprolol starting tomorrow. I did call a prescription of Eliquis 5 mg
twice daily to her pharmacy. I called for 1 month supply. Patient will follow-up with her sider
Original Note:
History of Present Illness
General
Chief Complaint: Heart Rate Problem
Source: patient
Exam Limitations: none
Time Seen by Provider: 01/12/24 17:04
Travel History
Have you had any contact with someone who has COVID-19?: No
Do you have any symptoms of coronavirus? Fever > 100 degrees, chills, cough, shortness of breath, sore throat, loss of taste or smell, muscle aches, or headache?: No
History of Present Illness
History of Present Illness:
See MDM
Past History
Past History
ED Past Medical History: Other (Crohn's disease)
ED Past Surgical History: Bowel resection and Cardiac
Social History
Tobacco: Non-smoker
Alcohol: Occasional
Drug: None
Personal:
Living: with family
Employment: Employed
Phy Exam
Physical Exam
Physical Exam:
See MDM
Course
Orders/Labs/Results
Orders:
Orders
01/12/24 15:40
EKG [Electrocardiogram (*1)] Urgent
Reason for Study: Palpitations
EKG- Treatment ONCE
01/12/24 16:10
IV Insert/Care/Rem.- Treatment PRN
01/12/24 16:11
Complete Blood Count/With Diff Urgent
Comprehensive Metabolic Panel Urgent
Troponin I Urgent
01/12/24 17:14
Diltiazem HCl [Cardizem] 15 mg IV NOW STA
01/12/24 17:22
Diltiazem 125 mg/125 ml Nss [Cardizem] 125 mg in 125 ml IV NOW
Initial dose in mg/hr, then titrate:: 5
Titrate to keep:: Heart rate 80-100 bpm
Titrate by mg/hr:: 5 mg/hr
Frequency of titrations (minutes):: 15
Maximum dose in mg/hr:: 15
01/12/24 17:23
Apixaban [Eliquis] 5 mg PO ONCE ONE
01/12/24 18:35
Diltiazem HCl [Cardizem] 25 mg IV NOW STA
01/12/24 20:20
Admit/Transfer Patient As Directed
Co-Sign Provider:
Level of Care: Inpatient admission
Assign to:: IVU
Physician / Group: [email or web address]
Diagnosis: New onset fast A Fib
Reason for Hospitalization: New onset fast A Fib
Expected length of stay greater than two midnights?: Yes
ELOS- Estimated Length of Stay in days: 3
I certify the patient meets the requirements for IP care: Yes
01/12/24 20:21
Code Status As Directed
Resuscitation Status: Full Code
01/13/24 08:00
Apixaban [Eliquis] 5 mg PO BID
01/15/24 11:00
DC Protocol for Telemetry ONCE
Abnormal Lab Results
01/12/24
16:11
RBC 3.34 L 10^6/uL
(4.20-5.40)
Hgb 10.3 L g/dL
(12.0-16.0)
Hct 29.8 L %
(37.0-47.0)
Absolute Neuts (auto) 7.6 H 10^3/uL
(1.4-6.5)
Absolute Lymphs (auto) 1.0 L 10^3/uL
(1.2-3.4)
Absolute Monos (auto) 0.7 H 10^3/uL
(0.1-0.6)
Neutrophils % 80.6 H %
(42.2-75.2)
Lymphocytes % 10.1 L %
(20.5-51.1)
Creatinine 0.5 L mg/dL
(0.6-1.0)
Glucose 107 H mg/dl
(70-99)
AST 38 H U/L
(14-36)
Troponin I 0.375 H* ng/ml
Total Protein 5.7 L g/dl
(6.3-8.2)
Albumin 3.2 L g/dl
(3.5-5.0)
01/12/24 16:11
01/12/24 16:11
Vital Signs
Initial and Last Documented VS:
Initial Vital Signs
Temp Pulse Resp BP Pulse Ox
98.3 F 144 16 131/92 98
01/12/24 15:40 01/12/24 15:40 01/12/24 15:40 01/12/24 15:40 01/12/24 15:40
Last Documented Vital Signs
Temp Pulse Resp BP Pulse Ox
98.3 F 84 19 107/67 97
01/12/24 15:40 01/12/24 21:18 01/12/24 21:07 01/12/24 21:07 01/12/24 21:07
MDM/Problems Addressed
Differential Diagnosis Includes:
HPI and MDM Narrative:
58-year-old female presenting with palpitations. Patient found to be in new onset A-fib. Patient had mitral valve repair last week. She woke up feeling fine this morning. Few hours later, palpitations. Patient found to be in A-fib. She was
placed on 12.5 mg Toprol XL and aspirin postop. Patient was not placed on blood thinners
On exam, patient is tachycardic and irregular. She is otherwise well-appearing nontoxic. Will discuss case with cardiology and CT surgery. Will give dose of IV Cardizem in an attempt for chemical cardioversion
Physical exam
General: Well appearing and non-toxic
HEENT: protecting airway
Neck: appears supple
CV: No evidence of cyanosis. Tachycardic and irregular
Chest: Right lateral wall incision clean and intact
Resp: No accessory muscle use
Abd: Non-distended
Extremities: No deformities
Neuro: alert
Psych: Normal affect
Skin: Intact
Problems Addressed including Acute and Chronic Conditions affecting care:
1. New onset A-fib
Acuity: acute
Prognosis: unstable
Details: In the setting of postop mitral valve repair. Will give dose of IV Cardizem and attempt to chemically cardiovert
Updates
Case discussed with CT surgery and cardiology. I will attempt chemical cardioversion with Cardizem. Will avoid transthoracic electric cardioversion. If patient cannot be chemically cardioverted, will admit
6:30 PM although heart rate decreased somewhat, she still in the 110s. Will give another bolus of Cardizem
7:45 PM even after second bolus of IV Cardizem, patient remains in A-fib while on Cardizem drip. Will
9:20 PM just before being admitted, patient converted to sinus rhythm. Will discharge
Differential Diagnosis (but not limited to): Electrolyte abnormalities, new onset A-fib
Testing considered: Chest x-ray
Drug therapy (if applicable): OTC meds, please see d/c instruction regarding Rx drugs
Amount and/or Complexity of Data Reviewed
Clinical info obtained from: Patient
External data reviewed: N/A
Labs I independently reviewed (but not limited to): Elevated troponin but this is likely in setting of recent mitral valve repair
Radiology: N/A
Pulse Ox: not hypoxic
EKG independently reviewed: A-fib with RVR, normal axis, no STEMI
Glass Beveler: A-fib with RVR
Critical Care: the high probability of a clinically significant, sudden or life threatening deterioration of the Cardiovascular system(s) required my full and direct attention, intervention and personal management. The aggregate critical care time
was 33 minutes. This time is in addition to time spent performing reported procedures but includes the following:
[x] Data Review and interpretation
[x] Patient assessment and monitoring of vital signs
[x] Documentation
[x] Medication orders and management
Risk of Complication:
Social Determinants of health: Good social support
Discussed with other providers: Cardiology, hospitalist
Escalation of Care includes Admit/Obs: Given prolonged observation emergency department, patient stable for discharge home
Occasional wrong word or 'sound a like' substitutions may have occurred due to the inherent limitations of voice recognition software. Read the chart carefully and recognize, using context, where substitutions have occurred.
*Critical Care Note
Total Time (30-74mins, 75-104mins- exclusive of procedures): 33 min
ED Attending Note
-
Portions of this chart may have been created with voice recognition software.� Occasional wrong word or��sound alike� substitutions may have occurred due to the inherent limitations of voice recognition software.
Discharge Plan
Departure
Patient Disposition: Home (Routine Discharge)
Date of Disposition: 01/12/24
Time of Disposition: 19:47
Admit to: Telemetry
Patient with high blood pressure during this ER visit?: No
Discharge Problem:
New onset a-fib
Interventions
Interventions:
*Risk Screen - Suicide Last Done: 01/12/24 15:40
*General Assessment Last Done: 01/12/24 15:40
*Neglect/Abuse Screening Last Done: 01/12/24 15:40
ED- Fall Risk Assessment Last Done: 01/12/24 16:07
ED- Cardiac Assessment Last Done: 01/12/24 16:07
ED- Pulmonary Assessment Last Done: 01/12/24 16:07
[2024-01-12] MEDS: CARDIZEM 125 IV (17:31)
[2024-01-12] MEDS: CARDIZEM 15 MG IV (17:31)
[2024-01-12] MEDS: ELIQUIS 5 MG PO (17:32)
[2024-01-12] MEDS: CARDIZEM 25 MG IV (18:39)
--- NOTE | 2024-01-12 20:13 | HPS.HSE ---
Addendum entered and electronically signed by Arnel Bragg MD 01/13/24 12:51:
Converted to NSR on Dilt gtt per Dr Lei/ER
He discussed case with DR Odell /CBC Card
Patient was DC'd from ER and Card will f/u as out patient
ER attd placed consult to hospitalist
Original Note:
Family Physician
-
Family Physician: Miguel White
Chief Complaint
-
racing heart and A fib per apple watch
History of Present Illness
HPI
58F POD5 Right mini thoracotomy, radical mitral valve repair (01/06/24) seen at ER for racing heart beats
Racing heart beats and A Fib were noted by Apple watch: Denied any symptoms
ROS
Associated with new SoB
No palpitation
Nu lightheadedness
No presyncope
Denied CP
At ER note
New onset of AF with RVR
Borderline hypotension
Initiated IV Diltiazem 15mg then 25 mg then gtt plus Eliquis 5mg once
Medical History
Past Medical History
Past Medical History: Reports Other
Additional Past Medical History:
Myxomatous mitral valve degeneration, Melton valve disease with severe mitral valve sufficiency
Crohn's disease
Kidney stone
Anxiety
Post-op acute hypoxic respiratory failure
Acute surgical blood loss anemia
Past Surgical History: Reports Cardiac ( Right mini thoracotomy, radical mitral valve repair (#40 mm band annuloplasty, 7 pairs of neochords [place]-Cole sutures with 2 to the anterior leaflet and 5 to the posterior leaflet, cleft closure between P1
and P2))
Social History
Tobacco: Non-smoker
Alcohol: Occasional
Drug: None
Personal:
Living: With Family
Employment: Employed
Family History
Family History: Not pertinent
Allergies / Home Medications
Allergies reflects when Allergies were last updated in [employer].
Home Medications with original date entered in [employer]
Allergy/Medication List:
Allergies
Allergy/AdvReac Type Severity Reaction Status Date / Time
No Known Allergies Allergy Verified 12/16/23 14:55
Home Medications
aspirin 81 mg chewable tablet (Children's Aspirin) 81 mg PO DAILY Blood clot prevention/tx #0 tabs 01/09/24
gabapentin 100 mg capsule 100 mg PO TID nerve pain #30 caps 01/09/24
metoprolol succinate 25 mg tablet,extended release 24 hr 12.5 mg (1/2 x 25 mg) PO DAILY Heart disease/condition #30 tabs 01/09/24
oxycodone 5 mg tablet 5 mg PO Q6HPRN PRN severe pain #30 tabs 01/09/24
acetaminophen 500 mg tablet (Tylenol Extra Strength) 1,000 mg PO QIDPRN PRN mild pain 01/12/24
Review of Systems
-
Constitutional: Reports No Symptoms
EENT: Reports No Symptoms
Respiratory: Reports No Symptoms
Cardiac: Reports Palpitations
Abdomen/GI: Reports No Symptoms
: Reports No Symptoms
Musculoskeletal: Reports No Symptoms
Skin: Reports No Symptoms
Neurological: Reports No Symptoms
Endocrine: Reports No Symptoms
Hematologic/Lymphatic: Reports No Symptoms
Psych: Reports No Symptoms
Physical Exam
Vital Signs
Vital Signs
Temp Pulse Resp BP Pulse Ox
98.3 F 85 23 106/74 94
01/12/24 15:40 01/12/24 20:05 01/12/24 20:05 01/12/24 20:00 01/12/24 20:05
Physical Exam
General: Well Developed, Well Nourished, No Apparent Distress, Comfortable and Conversant
HEENT: NormoCephalic, Anicteric and Moist mucous membranes
Respiratory: Clear
Cardiac: S1/S2, Irregular Rhythm and Tachycardia
Breast: Deferred by me
GI: Soft, Non Tender, Non Distended and Normal Bowel Sounds
Rectal: Deferred by Provider
Genito-urinary: Deferred by me
Musculoskeletal: No Edema
Skin: Warm and Dry
Neuro: AO x 3 and Nonfocal/grossly intact
Psych: Calm and Intact Judgment/Insight
Laboratory Results
-
01/12/24 16:11
01/12/24 16:11
Laboratory Results
Total Bilirubin 1.1 mg/dl (0.2-1.3) 01/12/24 16:11
AST 38 U/L (14-36) H 01/12/24 16:11
ALT 33 U/L (0-35) 01/12/24 16:11
Alkaline Phosphatase 95 U/L (38-126) 01/12/24 16:11
Troponin I 0.375 ng/ml H* 01/12/24 16:11
Data Reviewed
-
Medical Tests (Nuc Med, Echo, EKG etc): Report Reviewed by me
Lab Data: Labs Reviewed by me
Old Records: Reviewed
Impression/Plan
-
Reviewed VS: HR hi 90s Borderline hypotension 105/60 POx 93% on RA
Data
Hgb 10.3 - baseline hi 8s to hi 9s
nl eGFR
TPNI 0.375
EKG report
ATRIAL FIBRILLATION WITH RAPID VENTRICULAR RESPONSE
ST and T WAVE ABNORMALITY, CONSIDER LATERAL ISCHEMIA
ABNORMAL ECG
WHEN COMPARED WITH ECG OF 07-JAN-2024 04:40,
ATRIAL FIBRILLATION HAS REPLACED SINUS RHYTHM
VENT. RATE HAS INCREASED BY 75 BPM
T WAVE INVERSION LESS EVIDENT IN ANTERIOR LEADS
T WAVE INVERSION NOW EVIDENT IN LATERAL LEADS
01/08/24 TTE
LVEF 55-60
nl RV size and function
Moderately dilated left atrium.
S/p mitral valve repair with peak/mean gradients of 5/2 mmHg, respectively.
Mild tricuspid regurgitation. Estimated pulmonary artery pressure of 18 mmHg, assuming a right atrial pressure of 3 mmHg.
Compared to prior from October 08, 2023, now status post mitral valve repair.
Last admission to [facility] Card service 01/05- 01/09/24
Procedures:
1. Right mini thoracotomy, radical mitral valve repair (#40 mm band annuloplasty, 7 pairs of neochords [place] sutures with 2 to the anterior leaflet and 5 to the posterior leaflet, cleft closure between P1 and P2)
Primary Diagnosis:
1. Myxomatous mitral valve degeneration, Melton valve disease with severe mitral valve sufficiency
ASSESSMENT & PLAN
New onset fast AF with borderline hypotension
POD4 radical mitral valve repair ( 01/06/24 Dr Felix at [facility])
Associated with new SoB
- cont ASA
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
- cont Diltiazem gtt
- cont Eliquis 5mg BID per CBc acrd
- NPO after MN
- CBC acrd consulted: for JONATHAN and CV tomorrow
Elevated TPNI
- suspect NIMI
- Trend TPNI
PHX
Crohn's disease
Kidney stone
Anxiety
DVT Px: on Eliquis
Code: Full code
IMU
[2024-01-12] MEDS: LOPRESSOR 25 MG PO (21:18)
== END 2024-01-12 22:41 | disposition home or self-care (01) | DRG 309 ==
LOC: ED 20:41
PROVIDERS: Emergency Medicine; ADMITTING PHYSICIAN Internal Medicine; EMERGENCY PHYSICIAN Student in an Organized Health Care Education/Training Program; FAMILY PHYSICIAN Internal Medicine
DX: I48.91 Unspecified atrial fibrillation (principal); K50.90 Crohn's disease, unspecified, without complications; R00.2 Palpitations; F41.9 Anxiety disorder, unspecified; Z87.442 Personal history of urinary calculi
CPT/HCPCS: 80053; 84484; 85025; 93005

== ENCOUNTER 2024-03-03 09:02 | Outpatient (RCR) | payer OTHER, SELFPAY | END 2024-03-03 23:59 | disposition home or self-care (01) | LOC: CRHB 09:02 | PROVIDERS: ATTENDING PHYSICIAN Internal Medicine Cardiovascular Disease; FAMILY PHYSICIAN Internal Medicine; REFERRING PHYSICIAN Thoracic Surgery (Cardiothoracic Vascular Surgery) | DX: Z95.4 Presence of other heart-valve replacement (principal) | CPT/HCPCS: 93797; 93798 ==

== ENCOUNTER 2024-04-02 08:40 | Outpatient (RCR) | payer OTHER, SELFPAY | END 2024-04-02 23:59 | disposition home or self-care (01) | LOC: CRHB 08:40 | PROVIDERS: ATTENDING PHYSICIAN Internal Medicine Cardiovascular Disease; FAMILY PHYSICIAN Internal Medicine; REFERRING PHYSICIAN Thoracic Surgery (Cardiothoracic Vascular Surgery) | DX: Z95.4 Presence of other heart-valve replacement (principal) | CPT/HCPCS: 93797; 93798 ==

== ENCOUNTER → 2024-04-13 10:29 | Outpatient (REF) | payer OTHER, SELFPAY | LOC: RCS 10:29 | PROVIDERS: ATTENDING PHYSICIAN Nurse Practitioner; FAMILY PHYSICIAN Internal Medicine | DX: Z98.890 Other specified postprocedural states (principal); I48.0 Paroxysmal atrial fibrillation | CPT/HCPCS: 93308; 93321; 93325 ==

== ENCOUNTER 2024-04-21 09:13 | Outpatient (RCR) | payer OTHER, SELFPAY | END 2024-04-21 23:59 | disposition home or self-care (01) | LOC: CRHB 09:13 | PROVIDERS: ATTENDING PHYSICIAN Internal Medicine Cardiovascular Disease; FAMILY PHYSICIAN Internal Medicine; REFERRING PHYSICIAN Thoracic Surgery (Cardiothoracic Vascular Surgery) | DX: Z95.4 Presence of other heart-valve replacement (principal) | CPT/HCPCS: 93797; 93798 ==

== ENCOUNTER → 2024-08-06 14:15 | Outpatient (REF) | payer OTHER, SELFPAY | LOC: RCS 14:15 | PROVIDERS: ATTENDING PHYSICIAN Thoracic Surgery (Cardiothoracic Vascular Surgery); FAMILY PHYSICIAN Internal Medicine | DX: Z98.890 Other specified postprocedural states (principal) | CPT/HCPCS: 93306 ==

== ENCOUNTER → 2025-08-03 15:45 | Outpatient (REF) | payer OTHER, SELFPAY | LOC: RCS 15:45 | PROVIDERS: ATTENDING PHYSICIAN Nurse Practitioner Acute Care; FAMILY PHYSICIAN Internal Medicine | DX: Z98.890 Other specified postprocedural states (principal) | CPT/HCPCS: 93306 ==